=== PATIENT | male | born 1935 | race Caucasian/White ===

== ENCOUNTER → 2018-06-03 12:47 | Outpatient (POV) | payer MEDICARE, SELFPAY | PROVIDERS: Visit Provider Dermatology | DX: Z00.00 Encounter for general adult medical examination without abnormal findings (principal) ==

== ENCOUNTER → 2018-07-01 09:02 | Outpatient (POV) | payer MEDICARE, SELFPAY | PROVIDERS: Visit Provider Dermatology | DX: Z00.00 Encounter for general adult medical examination without abnormal findings (principal) ==

== ENCOUNTER → 2018-09-09 14:24 | Outpatient (POV) | payer MEDICARE, SELFPAY | PROVIDERS: Visit Provider Dermatology | DX: Z00.00 Encounter for general adult medical examination without abnormal findings (principal) ==

== ENCOUNTER → 2020-05-11 09:06 | Outpatient (CLI) | payer MEDICARE, SELFPAY ==
[2020-05-11 09:30] LABS: Basophils % 0.9 % (0.1-2.0); Eosinophils # 0.1 K/mm3 (0.0-0.4); Eosinophils % 3.2 % (0.1-12.0); Lymphocytes # 1.2 K/mm3 (0.7-4.5); Lymphocytes % 29.2 % (10-50); Mean Corpuscular HGB Conc 33.3 g/dL (31.8-35.4); Monocytes # 0.4 K/mm3 (0.1-1.0); Monocytes % 8.4 % (1.7-9.3); Neutrophils # 2.4 K/mm3 (1.8-7.8); Neutrophils % 58.3 % (37.0-80.0); Platelet Count 119 K/mm3 (142-424); Red Blood Count 4.19 M/mm3 (4.60-6.20); Red Cell Distribution Width 14.3 % (11.5-17.5); White Blood Count 4.2 K/mm3 (4.8-10.8)
[2020-05-11 10:11] LABS: Chloride 101 mmol/L (98-107); Potassium 4.6 mmoL/L (3.5-5.1); Sodium 138 mmol/L (136-145)
[2020-05-11 10:14] LABS: Alanine Aminotransferase 18 U/L (12-78); Albumin Level 3.4 g/dl (3.5-5.0); Albumin/Globulin Ratio 1.4 (1.1-1.8); Alkaline Phosphatase 87 U/L (38-126); Anion Gap 12.6 mEq/L (5-15); Aspartate Amino Transferase 34 U/L (17-59); Bilirubin,Total 0.8 mg/dl (0.2-1.3); Blood Urea Nitrogen 23 mg/dl (9-20); Carbon Dioxide 29 mmol/L (22.0-30.0); Estimated Glomerular Filt Rate 64 ml/min (>60); GFR (African American) 77 ML/MIN (>60); Globulin 2.5 g/dL (1.3-3.2); Total Protein,Serum 5.9 g/dl (6.3-8.2)
[2020-05-11 10:15] LABS: Calcium 8.8 mg/dl (8.4-10.2); Glucose 205 mg/dl (74-100)
[2020-05-11 10:37] LABS: Coronavirus 19 IgG Antibody Negative (Negative); Coronavirus 19 IgM Antibody Negative (Negative)
== END ==
PROVIDERS: Visit Provider Otolaryngology
DX: Z01.818 Encounter for other preprocedural examination (principal); C44.202 Unspecified malignant neoplasm of skin of right ear and external auricular canal; D49.2 Neoplasm of unspecified behavior of bone, soft tissue, and skin; H95.41 Postprocedural hemorrhage of ear and mastoid process following a procedure on the ear and mastoid process
CPT/HCPCS: 36415; 80053; 85025; 86328

== ENCOUNTER 2020-05-12 06:06 | Day surgery (SDC) | payer MEDICARE, SELFPAY ==
[2020-05-10 11:10] VITALS: BMI 27.9
[2020-05-12 06:37] VITALS: BP 110/77; PULSE 69; RESP 18; TEMP 36.6; O2SAT 97
--- NOTE | 2020-05-12 06:40 | ECG_ITS ---
APPROVED REPORT Exam: Resting ECG HR:73 bpm ECG Measurements Heart Rate 73 AXES QRSd 104 QRS 39 QT 452 T -82 QTc 497 <Conclusion> Atrial fibrillation Low voltage QRS Incomplete right bundle branch block Nonspecific ST and T wave abnormality Prolonged QT Abnormal ECG Electronically signed by : Tay Ortega, 05/15/2020 15:04:06
[2020-05-12 07:11] LABS: POC Glucose,Bedside 104 (70-110)
--- NOTE | 2020-05-12 07:32 | P.PN_ITS ---
[facility] Anesthesia Checklist - Structural Data Admitted From: Home Planned Operative Procedure/s: excision neoplasm r face Consent for Planned Operative Procedure(s) Verified: Yes - Additional verifications Anesthesia Reactions: No Hx Blood Transfusions: No Blood Transfusion Reaction: No - Airway Assessment C-Spine Mobility Assessed: Yes TMJ Mobility Assessed: Yes Dentition: Poor Dentition - Neurological Assessment Level of Consciousness: Awake, Alert, Appropriate - Anesthesia Plan Anesthesia Risk discussed: Yes Anesthesia Plan: Verified ASA Class: III Anesthesia Type: MAC [facility] History I have reviewed the patient's past medical history: Yes Medical History: Reports:: Diabetes Mellitus Type 2, Hyperlipidemia, Hypertension Denies:: Cancer, Diabetes Mellitus Type 1, Internal Pacemaker, MRSA, Seizures *Have you ever received a pneumonia vaccine?: Yes *Have you received a flu vaccine this season?: Yes Other Medical History: Denies: Blood Transfusion Reaction Anesthesia experience/problems:: none Other Surgeries: Yes: Skin Cancer Excision, Other. No: Pacemaker Amputation: No Fractures: No - *Social History Last grade of school completed: 7th or 8th Smoking Status: Former smoker Alcohol Intake: never Alcohol Intake Frequency:: other Substance Use Type: denies use *Occupational Status:: retired Housing: house Household Members: spouse *Travel in the last 8 weeks: None Family Hx:: Unable to obtain
--- NOTE | 2020-05-12 08:31 | P.OP_ITS ---
Date of procedure: 05/12/20 Pre-op Diagnosis:: 1. 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 Malignant neoplasm right presybeterian 3 cm Post-op Diagnosis:: same Procedure performed:: 1. Excision neoplasm right ear 3.5 cm including subjacent cartilage with tissue rearrangement geometric plastic repair 2. Excision malignant neoplasm right presybeterian 3 cm with tissue rearrangement geometric plastic repair Surgeon:: Lebron Alonso MD ELECTRONIC PUBLICATIONS SPECIALIST:: Sawyer Goetz Anesthesia: MAC Estimated blood loss (mL): 10 Operative findings:: same Operative note:: With the patient under MAC anesthesia the right ear and right presybeterian were prepped and draped the perilesional areas were infiltrated with a total of 5 cc of 2% lidocaine containing epinephrine. The bruno out on the right ear was incised and the lesion was excised including subjacent cartilage. Anterior and posterior incisions were made and bleeding was stopped with bipolar cautery. A tissue rearrangement geometric plastic repair was done with interrupted 4-0 nylon sutures after Surgicel was placed in the defect. The lesion on the left presybeterian was marked out it measured 3 cm, the bruno out was incised and the lesion was excised and submitted. Bleeding was stopped with bipolar cautery, blood loss for all the procedure was 10 cc. Superior and inferior incisions were made and a tissue rearrangement geometric plastic repair was done after Surgicel snow was placed in the defect. Dermabond dressings were applied and the patient was sent to recovery in good general condition . Condition: stable Disposition: PACU Complications:: none
[2020-05-12 08:35] VITALS: BP 112/69; PULSE 62; RESP 16; TEMP 36.6; O2SAT 97
[2020-05-12 08:50] VITALS: BP 113/76; PULSE 69; RESP 16; O2SAT 97
[2020-05-12 09:05] VITALS: BP 111/72; PULSE 68; RESP 16; O2SAT 98
== END 2020-05-12 09:05 | disposition home or self-care (01) ==
PROVIDERS: PCP Family Medicine; Visit Provider Otolaryngology
PROC: (CPT 14040; principal; 2020-05-12 07:30)
DX: C44.212 Basal cell carcinoma of skin of right ear and external auricular canal; L82.1 Other seborrheic keratosis; E11.9 Type 2 diabetes mellitus without complications; I10 Essential (primary) hypertension; E78.5 Hyperlipidemia, unspecified; Z85.828 Personal history of other malignant neoplasm of skin; Z87.891 Personal history of nicotine dependence; Z79.84 Long term (current) use of oral hypoglycemic drugs; Z79.899 Other long term (current) drug therapy
CPT/HCPCS: 14040; 14060; 82962; 88305; 93005; 96374; 96375

== ENCOUNTER 2020-05-14 16:30 | Emergency (ER) | payer MEDICARE, SELFPAY ==
[2020-05-14 16:39] VITALS: BP 126/61; PULSE 92; RESP 17; TEMP 37; O2SAT 92; BMI 28.3
--- NOTE | 2020-05-14 16:50 | HMH.EDSKAF ---
ED Disposition Clinical Impression: Post-op bleeding Qualifiers: Surgical complication system/body Area: ear Procedure type: ear Qualified Code(s): H95.41 - Postprocedural hemorrhage of ear and mastoid process following a procedure on the ear and mastoid process Disposition: Home, Self-Care Condition on Discharge: Good Instructions: DI for Skin Abscess Referrals: Tay Pablo MD [Primary Care Provider] - - Critical Care Critical Care Time: No Attestation: On 05/14/20, the high probability of a clinically significant, sudden or life threatening deterioration of the following system(s) required my full and direct attention, intervention and personal management. The time I documented below is in addition to time spent performing reported procedures but includes the following listed in this critical care notation. Medical Decision Making - Samson Inquiry Pt receiving controlled substance: No Vital Signs: 05/14/20 16:39 Temperature 98.6 F Temperature Source Oral Pulse Rate [Right Radial] 92 H Respiratory Rate 17 Blood Pressure [Right Arm] 126/61 Blood Pressure Mean [Right Arm] 82 02 Sat by Pulse Oximetry 92 L Skin/Abscess/FB HPI - General Chief complaint: Skin/Abscess/Foreign Body Stated complaint: surgery 05/12/20 R ear bleeding Time Seen by Provider: 05/14/20 16:45 Mode of Arrival: Ambulatory Source of Information: Patient Limitations: No Limitations Description of Symptoms (Recalled from ER Triage Doc. by RN): right ear site bleeding. pt states that dr suarez removed a place from his right ear and it will not stop bleeding. pt states the ear is swollen and red also. - History of Present Illness HPI narrative: This is a 89-year-old male who presents with acute bleeding of postop site at right ear. Patient had a had precancerous lesion removed approximately 2 days ago. Site has been oozing blood. reports she is unable to control the bleeding. Patient denies any pain or fever. Patient is on apixaban for anticoagulation secondary to atrial fibrillation. - Related Data Home Medications Medication Instructions Recorded Confirmed bisoprolol fumarate 5 mg tablet 5 mg PO DAILY 90 Days tab 10/02/18 05/02/20 glipizide 10 mg tablet 10 mg PO DAILY 90 Days tab 10/02/18 05/02/20 lisinopril 2.5 mg tablet 2.5 mg PO DAILY 90 Days tab 10/02/18 05/02/20 metformin 1,000 mg tablet 1,000 mg PO DAILY 90 Days tab 10/02/18 05/02/20 simvastatin 10 mg tablet 10 mg PO DAILY 90 Days tab 10/02/18 05/02/20 apixaban 5 mg tablet 5 mg PO BID 05/02/20 05/02/20 Allergies Allergy/AdvReac Type Severity Reaction Status Date / Time No Known Allergies Allergy Verified 05/14/20 16:43 [facility] History - Hepatitis A Screen Drug use history?: No High risk sexual behaviors?: No History of sexually transmitted infection?: No Currently employed?: No Childcare worker?: No Do you have indoor plumbing?: Yes Do you have electricity?: Yes Attestation statement:: This patient has been screened for Hepatitis A risk factors. I have reviewed the patient's past medical history: Yes Medical History: Reports:: Diabetes Mellitus Type 2, Hyperlipidemia, Hypertension Denies:: Cancer, Diabetes Mellitus Type 1, Internal Pacemaker, MRSA, Seizures Other Medical History: Denies: Blood Transfusion Reaction Other Surgeries: Yes: Skin Cancer Excision, Other. No: Pacemaker Amputation: No Fractures: No Comment: facial lesion - Social History Smoking Status: Former smoker Alcohol Intake: never Alcohol Intake Frequency:: other Substance Use Type: denies use Occupational Status: retired Housing: house Household Members: spouse Family Hx:: Unable to obtain ROS Obtained: Yes All systems reviewed & no additional complaints Physical Exam - General General appearance: alert, in no apparent distress - Head Head exam: atraumatic, other (surgical site at L.superior auricle w/ clotted blood; no active bleeding) - Ey
[2020-05-14 18:07] VITALS: BP 125/78; PULSE 78; RESP 16; TEMP 36.6; O2SAT 98
== END 2020-05-14 18:08 | disposition home or self-care (01) ==
PROVIDERS: Emergency Provider Emergency Medicine; PCP Family Medicine
DX: H95.41 Postprocedural hemorrhage of ear and mastoid process following a procedure on the ear and mastoid process (principal); I10 Essential (primary) hypertension; E78.5 Hyperlipidemia, unspecified; E11.9 Type 2 diabetes mellitus without complications; Z87.891 Personal history of nicotine dependence
CPT/HCPCS: 17250; 99281

== ENCOUNTER → 2021-03-06 15:02 | Outpatient (CLI) | payer MEDICARE, SELFPAY | PROVIDERS: PCP Family Medicine; Visit Provider Family Medicine | DX: I48.11 Longstanding persistent atrial fibrillation (principal); I50.32 Chronic diastolic (congestive) heart failure; R01.1 Cardiac murmur, unspecified | CPT/HCPCS: 93306 ==

== ENCOUNTER → 2021-03-08 09:25 | Outpatient (CLI) | payer MEDICARE, SELFPAY ==
--- NOTE | 2021-03-08 | ECG_ITS ---
APPROVED REPORT Exam: Resting ECG HR:61 bpm ECG Measurements Heart Rate 61 AXES QRSd 100 QRS 94 QT 442 T 250 QTc 444 Conclusion Atrial fibrillation Rightward axis Incomplete right bundle branch block T wave abnormality, consider inferolateral ischemia or digitalis effect Abnormal ECG Electronically signed by : Tay Ortega, 03/08/2021 17:40:16
[2021-03-08 10:33] LABS: Basophils % 0.5 % (0.1-2.0); Eosinophils # 0.1 K/mm3 (0.0-0.4); Eosinophils % 2.3 % (0.1-12.0); Hematocrit 35.3 % (42.0-52.0); Hemoglobin 11.9 g/dL (14.1-18.0); Lymphocytes # 0.9 K/mm3 (0.7-4.5); Lymphocytes % 15.1 % (10-50); Mean Corpuscular HGB Conc 33.8 g/dL (31.8-35.4); Mean Corpuscular Hemoglobin 29.3 pg (27.0-31.2); Mean Corpuscular Volume 86.7 fl (80-94); Mean Platelet Volume 9.1 fl (7.4-10.4); Monocytes # 0.4 K/mm3 (0.1-1.0); Monocytes % 7.5 % (1.7-9.3); Neutrophils # 4.3 K/mm3 (1.8-7.8); Neutrophils % 74.6 % (37.0-80.0); Platelet Count 164 K/mm3 (142-424); Red Blood Count 4.07 M/mm3 (4.60-6.20); White Blood Count 5.7 K/mm3 (4.8-10.8)
== END ==
LOC: RAD 09:29 → RT 09:31
PROVIDERS: PCP Family Medicine; Visit Provider Otolaryngology
DX: Z01.818 Encounter for other preprocedural examination (principal); Z20.822 Contact with and (suspected) exposure to COVID-19; C44.41 Basal cell carcinoma of skin of scalp and neck
CPT/HCPCS: 36415; 85025; 93005; U0003

== ENCOUNTER 2021-03-09 08:49 | Day surgery (SDC) | payer MEDICARE, SELFPAY ==
[2021-03-02 13:23] VITALS: BMI 27.1
[2021-03-09 09:06] VITALS: BP 137/75; PULSE 76; RESP 18; TEMP 36.9; O2SAT 95
[2021-03-09 09:14] LABS: POC Glucose,Bedside 118 (70-110)
--- NOTE | 2021-03-09 09:48 | HMH.ANESCL ---
[facility] Anesthesia Checklist - Structural Data Admitted From: Home Planned Operative Procedure/s: excision neoplasm l ear Consent for Planned Operative Procedure(s) Verified: Yes - Additional verifications Anesthesia Reactions: No Hx Blood Transfusions: No Blood Transfusion Reaction: No - Airway Assessment C-Spine Mobility Assessed: Yes TMJ Mobility Assessed: Yes Dentition: Partials - Neurological Assessment Level of Consciousness: Awake, Alert, Appropriate - Anesthesia Plan Anesthesia Risk discussed: Yes Anesthesia Plan: Verified ASA Class: III Anesthesia Type: MAC [facility] History I have reviewed the patient's past medical history: Yes Medical History: Reports:: Cancer (skin), Diabetes Mellitus Type 2, Hyperlipidemia, Hypertension Denies:: Diabetes Mellitus Type 1, Internal Pacemaker, MRSA, Seizures *Have you ever received a pneumonia vaccine?: Yes *Have you received a flu vaccine this season?: Yes Other Medical History: Denies: Blood Transfusion Reaction Anesthesia experience/problems:: none Other Surgeries: Yes: Skin Cancer Excision, Other. No: Pacemaker Amputation: No Fractures: No - *Social History Last grade of school completed: 5th or 6th Smoking Status: Never smoker Alcohol Intake: never Alcohol Intake Frequency:: other Substance Use Type: denies use *Occupational Status:: retired Housing: house Household Members: spouse *Travel in the last 8 weeks: None Family Hx:: No significant family history
--- NOTE | 2021-03-09 10:28 | P.OP_ITS ---
Date of procedure: 03/09/21 Pre-op Diagnosis:: 1. 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 Neoplasm left cheek 3 cm 3. Neoplasm left cheek anterior 2 cm Post-op Diagnosis:: same Procedure performed:: 1. Excision of neoplasm left mastoid 3.8 cm with tissue rearrangement Z-plasty repair 2. Excision excision of neoplasm left cheek 3 cm with simple repair 3. Excision of neoplasm anterior left cheek 2 cm with simple repair Surgeon:: Lebron Alonso MD CORONER/MEDICAL EXAMINER:: Letitia Ang Anesthesia: MAC Estimated blood loss (mL): 10 Operative findings:: same Operative note:: With the patient under a MAC anesthetic the face and left mastoid area were prepped and draped the perilesional areas were infiltrated with a total of 6 cc of 2% lidocaine containing epinephrine.. The lesion on the left mastoid was marked out it measured 3.8 cm markup was incised and the lesion was excised and submitted. Bleeding was stopped with bipolar cautery anterior and posterior incisions were made and a tissue rearrangement Z-plasty repair was done with interrupted 2-0 nylon sutures,a Dermabond dressing was applied. The lesion on the left cheek that measured 3 cm was marked out and the bruno out was incised and the lesion was excised bleeding was stopped with bipolar cautery, a simple repair was done with interrupted 2-0 nylon sutures and a Dermabond dressing was applied. The lesion on the left cheek anterior was marked out it measured 2 cm and the bruno out was incised the lesion was excised and a simple repair was done with interrupted two 2-0 nylon sutures, a Dermabond dressing was applied, the patient tolerated procedure well and was sent to recovery in good general condition. signed Lebron Alonso MD. thank you Condition: stable Disposition: PACU Complications:: none
[2021-03-09 10:30] VITALS: BP 123/69; PULSE 74; RESP 18; TEMP 36.4; O2SAT 95
[2021-03-09 10:40] VITALS: BP 120/74; PULSE 74; RESP 16; TEMP 36.4; O2SAT 96
[2021-03-09 10:50] VITALS: BP 122/68; PULSE 72; RESP 16; TEMP 36.4; O2SAT 98
[2021-03-09 11:00] VITALS: BP 122/68; PULSE 70; RESP 16; TEMP 36.4; O2SAT 98
== END 2021-03-09 11:00 | disposition home or self-care (01) ==
LOC: OR 08:50
PROVIDERS: PCP Family Medicine; Visit Provider Otolaryngology
DX: C44.329 Squamous cell carcinoma of skin of other parts of face (principal); C44.92 Squamous cell carcinoma of skin, unspecified; E11.9 Type 2 diabetes mellitus without complications; Z79.84 Long term (current) use of oral hypoglycemic drugs; I10 Essential (primary) hypertension
CPT/HCPCS: 11642; 11644; 14040; 82962; 88305; 96374; J2704

== ENCOUNTER → 2021-08-31 08:24 | Outpatient (CLI) | payer MEDICARE, SELFPAY ==
[2021-08-31] VITALS (8 sets, daily range): BP systolic 102–180; BP diastolic 63–98; PULSE 54–66; RESP 18; O2SAT 94–98
== END ==
PROVIDERS: PCP Family Medicine; Visit Provider Family Medicine
DX: U07.1 COVID-19 (principal); Z23 Encounter for immunization
CPT/HCPCS: 96365

== ENCOUNTER → 2021-10-25 09:15 | Outpatient (CLI) | payer MEDICARE, SELFPAY ==
--- NOTE | 2021-10-25 09:21 | CA_ITS ---
APPROVED REPORT EXAM: Comprehensive 2D, Doppler, and color-flow Echocardiogram Instructional Support Assistant: Brianne Lea RVT Ht: 5 ft 10 in Wt: 200lbs BSA: 2.09 BP: 111/58 mmHg Indications: CHF,SOA,DM,HTN,HLD,EDEMA 2D Dimensions LVOT 2.22 cm (M/F) 1.5-2.5 LA Volume 150.00 mL LA Volume Index 72.11 mL/m2 (M/F) 16-34 M-Mode Dimensions RVDd 3.94 cm (0.9-2.6) LA Diam 5.54 cm (1.9-4.0) LVDd 5.06 cm (3.5-5.7) Ao Diam 3.12 cm (2.0-3.7) LVDs 3.81 cm (3.5-5.7) IVSd 1.08 cm (0.6-1.1) PWd 0.63 cm (0.6-1.1) EF (Teich) 48.80% FS 24.70% EDV (Teich) 121.60 mL TAPSE 2.07 (<1.7) ESV (Teich) 62.30 mL LV Diastology E Decel Time 150.00 (160-240 msec) E/A Ratio 3.4 MED E' 8.60 (< 7 cm/sec) E'/MED E' Ratio 9.73 (>14) LAT E' 16.50 (<10 cm/sec) E/LAT E' Ratio 5.07 (>14) Aortic Valve LVOT Max 72.00 (70-110 cm/s) LVOT VTI 14.72 cm AoV Peak Wesley. 148.00 (50-130 cm/s) AO Peak GR. 8.80 mmHg AO Mean GR. 4.00 (<5 mmHg) AO VTI 32.27 (18-25 cm) LIN (VTI) 1.77 (2.5-4.5 cm2) Mitral Valve MV E Max Wesley. 84.00 (40-130 cm/s) MV A Velocity 25.00 (40-130 cm/s) E/A Ratio 3.35 MV Decel. Time 150.00 (160-240 ms) MV PHT 44.00 ms Pulmonary Valve PV Peak Velocity 73.00 (50-150 cm/s) Tricuspid Valve TR P. Velocity 467.00 cm/s RAP Estimate 10.00 mmHg RVSP 97.20 mmHg Left Ventricle Left atrium is moderately enlarged, left ventricle is normal size, mild concentric left ventricular hypertrophy, visually estimated ejection fraction 55% with no regional wall motion abnormality, there is flattening of the intraventricular septum during systole and diastole consistent with pressure and volume overload on right ventricle. Diastolic parameters are inconclusive. Right Ventricle Right atrium and right ventricle are markedly enlarged, contractility of the right ventricle is mildly reduced. Aortic Valve Aortic valve is minimally thickened and fibrosed, there is no aortic stenosis or aortic insufficiency. Mitral Valve Mitral valve leaflets are minimally thickened, there is moderate mitral regurgitation. Tricuspid Valve Tricuspid valve leaflets are minimally thickened, tricuspid annulus is dilated, there is severe tricuspid regurgitation, calculated right ventricular systolic pressure is 97 mmHg. Pulmonic Valve Pulmonic valve is poorly visualized, there is moderate pulmonic insufficiency. Great Vessels Aortic root is normal size. Inferior vena cava is dilated without significant inspiratory collapse. Pericardium Small pericardial effusion noted. Conclusion 1. Biatrial enlargement, normal left ventricular size, mild concentric left ventricular hypertrophy, visually estimated ejection fraction 55% with no regional wall motion abnormality, diastolic parameters are inconclusive, there is pressure and volume overload on right ventricle as indicated by flattening of the interventricular septum during systole and diastole. 2. Markedly enlarged right ventricle with mild reduced contractility. 3. Moderate mitral and severe tricuspid regurgitation, calculated right ventricular systolic pressure 97mmHg. 4. Small pericardial effusion noted. 5. Inferior vena cava is dilated without significant inspiratory collapse. Electronically signed by : Carloz Christine MD 10/25/2021 19:38:54
--- NOTE | 2021-10-25 10:13 | XR_ITS ---
FINAL REPORT TECHNIQUE: Chest PA & Lateral CLINICAL HISTORY: SOB,PLEURAL EFFUSION FINDINGS: 2 views of the chest were performed. The heart is mildly enlarged. The mediastinum is within normal limits. There is dense left lower lobe consolidation and pleural effusion. There is a small right pleural effusion with fluid tracking into the minor fissure. Findings are consistent with acute pneumonia particularly in the left lung base. There is no pneumothorax. The bony thorax appears intact. IMPRESSION: Acute pneumonia particularly in the left lung base. Reviewed, Interpreted and Dictated by Atul Crowe MD Transcribed by Driss Durham Authenticated by Atul Crowe MD on 10/25/2021 11:15:08 AM [facility]
== END ==
PROVIDERS: PCP Family Medicine; Visit Provider Family Medicine
DX: R06.02 Shortness of breath (principal); J90 Pleural effusion, not elsewhere classified; I50.30 Unspecified diastolic (congestive) heart failure; Z51.81 Encounter for therapeutic drug level monitoring; Z79.01 Long term (current) use of anticoagulants
CPT/HCPCS: 71046; 93306

== ENCOUNTER → 2021-10-27 10:49 | Outpatient (CLI) | payer MEDICARE, SELFPAY ==
--- NOTE | 2021-10-27 10:51 | CA_ITS ---
FINAL REPORT TECHNIQUE: Bilateral lower extremity venous duplex was performed with augmentation and compression. CLINICAL HISTORY: edema in BLE, no trauma, states his legs have been swelling for 6 months or longer. HTN, hyperlipidemia, DM, ex smoker. Patient takes Eliquis daily x 2 years. FINDINGS: Proper flow is seen throughout the deep venous systems bilaterally. There is no evidence of deep venous thrombosis. Interstitial edema is noted. IMPRESSION: No evidence of deep venous thrombosis. Reviewed, Interpreted and Dictated by Atul Crowe MD Transcribed by Lisa Gusman Authenticated by Atul rCowe MD on 10/27/2021 02:36:08 PM [facility]
[2021-10-27 12:13] LABS: Basophils % 0.4 % (0.1-2.0); Eosinophils # 0.1 K/mm3 (0.0-0.4); Eosinophils % 1.5 % (0.1-12.0); Hemoglobin 8.5 g/dL (14.1-18.0); Lymphocytes # 0.7 K/mm3 (0.7-4.5); Lymphocytes % 13.6 % (10-50); Mean Corpuscular HGB Conc 30.2 g/dL (31.8-35.4); Mean Corpuscular Hemoglobin 24.2 pg (27.0-31.2); Mean Corpuscular Volume 80.2 fl (80-94); Mean Platelet Volume 8.2 fl (7.4-10.4); Monocytes # 0.5 K/mm3 (0.1-1.0); Monocytes % 9.7 % (1.7-9.3); Neutrophils # 3.7 K/mm3 (1.8-7.8); Neutrophils % 74.8 % (37.0-80.0); Platelet Count 262 K/mm3 (142-424); Red Blood Count 3.49 M/mm3 (4.60-6.20)
[2021-10-27 12:41] LABS: Chloride 99 mmol/L (98-107); Potassium 4.6 mmoL/L (3.5-5.1); Sodium 132 mmol/L (136-145)
[2021-10-27 12:44] LABS: Anion Gap 8.6 mEq/L (5-15); Blood Urea Nitrogen 25 mg/dl (9-20); Carbon Dioxide 29 mmol/L (22.0-30.0); Estimated Glomerular Filt Rate 64 ml/min (>60); GFR (African American) 77 ML/MIN (>60)
[2021-10-27 12:45] LABS: Calcium 7.4 mg/dl (8.4-10.2); Glucose 134 mg/dl (74-100)
[2021-10-27 12:53] LABS: NT Pro Brain Natriuretic Pep. 1190 pg/mL (0-450)
== END ==
PROVIDERS: PCP Family Medicine; Visit Provider Internal Medicine Cardiovascular Disease
DX: M79.604 Pain in right leg (principal); M79.605 Pain in left leg; R60.0 Localized edema; I07.1 Rheumatic tricuspid insufficiency; I27.20 Pulmonary hypertension, unspecified; I34.0 Nonrheumatic mitral (valve) insufficiency; I48.11 Longstanding persistent atrial fibrillation; R06.00 Dyspnea, unspecified; R94.31 Abnormal electrocardiogram [ECG] [EKG]; Z86.16 Personal history of COVID-19
CPT/HCPCS: 36415; 80048; 80162; 82565; 83880; 84520; 85025; 93970

== ENCOUNTER → 2021-11-03 13:27 | Outpatient (CLI) | payer MEDICARE, SELFPAY ==
--- NOTE | 2021-11-03 13:27 | CT_ITS ---
FINAL REPORT TECHNIQUE: Then section axial CT images of the chest were obtained with contrast. Three-D reformatted images were also obtained.This study was performed with techniques to keep radiation doses as low as reasonably achievable (ALARA). Individualized dose reduction techniques using automated exposure control or adjustment of mA and/or kV according to the patient''s size were employed. CLINICAL HISTORY: dyspnea, no sx to chest FINDINGS: There is no central pulmonary embolism. The left lower lobe bronchus is poorly opacified. Left lower lobe segmental branches are unopacified. Findings are favored to be secondary to heart failure with diminished blood flow rather than pulmonary embolism. There is bilateral lower lobe atelectasis, left greater than right. There are moderate left and small right pleural effusions. There is a 5.7 cm soft tissue opacity in the lateral left lung base that favors rounded atelectasis. There is marked cardiomegaly with a small pericardial effusion. There are moderate changes of emphysema with mild scarring. There is mild bilateral posterior pleural thickening. Images through the abdomen demonstrate the liver to have an abnormal contour consistent with cirrhosis. There is mild splenomegaly. There are small gallstones. There is nonspecific gallbladder wall thickening. There is a 4.6 cm mass in the upper pole of the right kidney that cannot be accurately characterized but may represent a mildly complicated cyst. IMPRESSION: No central pulmonary embolism. Findings favoring heart failure with diminished blood flow. Right greater than left pleural effusions. Cirrhosis with mild splenomegaly. Cholelithiasis with nonspecific gallbladder wall thickening. Mass in the upper pole of the right kidney cannot be accurately characterized but may represent a mildly complicated cyst. Reviewed, Interpreted and Dictated by Dick Leggett III, MD Transcribed by Driss Durham Authenticated by Dick Leggett III, MD on 11/03/2021 03:10:40 PM [facility]
== END ==
PROVIDERS: PCP Family Medicine; Visit Provider Internal Medicine Cardiovascular Disease
DX: I07.1 Rheumatic tricuspid insufficiency (principal); I27.20 Pulmonary hypertension, unspecified; I34.0 Nonrheumatic mitral (valve) insufficiency; I48.11 Longstanding persistent atrial fibrillation; R06.00 Dyspnea, unspecified; R94.31 Abnormal electrocardiogram [ECG] [EKG]; Z86.16 Personal history of COVID-19
CPT/HCPCS: 71275; Q9967

== ENCOUNTER 2021-11-28 09:48 | Outpatient (CLI) | payer MEDICARE, SELFPAY ==
[2021-11-28 10:13] VITALS: BP 118/74; PULSE 80; RESP 16; TEMP 36.2; O2SAT 99
[2021-11-28 10:55] VITALS: BP 112/69; PULSE 78; RESP 18; TEMP 36.4; O2SAT 99
== END 2021-11-28 10:55 | disposition home or self-care (01) ==
LOC: INF 09:50
PROVIDERS: Visit Provider Family Medicine
DX: D64.9 Anemia, unspecified (principal)
CPT/HCPCS: 96365; J1439

== ENCOUNTER 2021-12-05 09:23 | Outpatient (CLI) | payer MEDICARE, SELFPAY ==
[2021-12-05 09:29] VITALS: BP 115/69; PULSE 82; RESP 18; TEMP 36.6; O2SAT 98; BMI 25.9
[2021-12-05 10:40] VITALS: BP 112/68; PULSE 82; RESP 16
== END 2021-12-05 10:40 | disposition home or self-care (01) ==
LOC: INF 09:24
PROVIDERS: PCP Family Medicine; Visit Provider Internal Medicine Medical Oncology
DX: D64.9 Anemia, unspecified (principal)
CPT/HCPCS: 96365; J1439

== ENCOUNTER → 2021-12-27 11:01 | Outpatient (CLI) | payer MEDICARE, SELFPAY ==
[2021-12-27 11:23] LABS: Basophils % 0.6 % (0.1-2.0); Eosinophils # 0.2 K/mm3 (0.0-0.4); Eosinophils % 4.1 % (0.1-12.0); Hematocrit 36.6 % (42.0-52.0); Hemoglobin 11.5 g/dL (14.1-18.0); Lymphocytes % 26.3 % (10-50); Mean Corpuscular HGB Conc 31.4 g/dL (31.8-35.4); Mean Corpuscular Volume 82.8 fl (80-94); Mean Platelet Volume 8.4 fl (7.4-10.4); Monocytes # 0.3 K/mm3 (0.1-1.0); Monocytes % 7.5 % (1.7-9.3); Neutrophils # 2.3 K/mm3 (1.8-7.8); Neutrophils % 61.5 % (37.0-80.0); Platelet Count 194 K/mm3 (142-424); Red Blood Count 4.42 M/mm3 (4.60-6.20); Red Cell Distribution Width 22.5 % (11.5-17.5); White Blood Count 3.8 K/mm3 (4.8-10.8)
[2021-12-27 12:33] LABS: Chloride 101 mmol/L (98-107); Sodium 137 mmol/L (136-145)
[2021-12-27 12:34] LABS: Potassium 4.2 mmoL/L (3.5-5.1)
[2021-12-27 12:37] LABS: Anion Gap 10.2 mEq/L (5-15); Blood Urea Nitrogen 21 mg/dl (9-20); Carbon Dioxide 30 mmol/L (22.0-30.0); Estimated Glomerular Filt Rate 64 ml/min (>60); GFR (African American) 77 ML/MIN (>60); Glucose 143 mg/dl (74-100)
== END ==
PROVIDERS: Visit Provider Internal Medicine Cardiovascular Disease
DX: D64.9 Anemia, unspecified (principal); I07.1 Rheumatic tricuspid insufficiency; I27.20 Pulmonary hypertension, unspecified; I34.0 Nonrheumatic mitral (valve) insufficiency; R06.00 Dyspnea, unspecified; R94.31 Abnormal electrocardiogram [ECG] [EKG]
CPT/HCPCS: 36415; 80048; 85025

== ENCOUNTER → 2023-08-07 23:17 | Outpatient (CLI) | payer MEDICARE, SELFPAY | PROVIDERS: PCP Nurse Practitioner Family; Visit Provider Nurse Practitioner Family | DX: R05.9 Cough, unspecified (principal); R09.89 Other specified symptoms and signs involving the circulatory and respiratory systems; J02.9 Acute pharyngitis, unspecified | CPT/HCPCS: 87635 ==

== ENCOUNTER 2023-09-18 13:07 | Outpatient (CLI) | payer MEDICARE, SELFPAY ==
[2023-09-18 13:29] LABS: Basophils % 0.5 % (0.1-2.0); Eosinophils # 0.1 K/mm3 (0.0-0.4); Eosinophils % 2.2 % (0.1-12.0); Hematocrit 42.4 % (42.0-52.0); Lymphocytes # 0.6 K/mm3 (0.7-4.5); Lymphocytes % 16.3 % (10-50); Mean Corpuscular Hemoglobin 29.9 pg (27.0-31.2); Mean Corpuscular Volume 90.6 fl (80-94); Monocytes # 0.3 K/mm3 (0.1-1.0); Monocytes % 9.2 % (1.7-9.3); Neutrophils # 2.5 K/mm3 (1.8-7.8); Neutrophils % 71.8 % (37.0-80.0); Platelet Count 166 K/mm3 (142-424); Red Blood Count 4.68 M/mm3 (4.60-6.20); Red Cell Distribution Width 14.5 % (11.5-17.5); White Blood Count 3.5 K/mm3 (4.8-10.8)
[2023-09-18 14:00] LABS: Alanine Aminotransferase 20 U/L (12-78); Albumin Level 3.2 g/dl (3.5-5.0); Albumin/Globulin Ratio 1.3 (1.1-1.8); Alkaline Phosphatase 95 U/L (38-126); Anion Gap 8.9 mEq/L (5-15); Aspartate Amino Transferase 35 U/L (17-59); Bilirubin,Total 0.6 mg/dl (0.2-1.3); Blood Urea Nitrogen 27 mg/dl (9-20); Calcium 7.9 mg/dl (8.4-10.2); Carbon Dioxide 33 mmol/L (22.0-30.0); Chloride 101 mmol/L (98-107); Estimated Glomerular Filt Rate 57 ml/min (>60); GFR (African American) 69 ML/MIN (>60); Globulin 2.5 g/dL (1.3-3.2); Glucose 187 mg/dl (74-100); Magnesium 2.1 mg/dl (1.6-2.3); Potassium 3.9 mmoL/L (3.5-5.1); Sodium 139 mmol/L (136-145); Total Protein,Serum 5.7 g/dl (6.3-8.2)
[2023-09-18 16:47] LABS: Troponin I 0.02 ng/ml (0.00-0.034)
[2023-09-18 17:06] LABS: Thyroid Stimulating Hormone 5.72 uIU/mL (0.465-4.68)
== END 2023-09-18 23:59 ==
LOC: LAB.DROPOF 13:07
PROVIDERS: PCP Nurse Practitioner Family; Visit Provider Nurse Practitioner Family
DX: R55 Syncope and collapse (principal); E78.5 Hyperlipidemia, unspecified; I48.91 Unspecified atrial fibrillation
CPT/HCPCS: 80053; 83735; 84443; 84484; 85025

== ENCOUNTER 2023-10-07 13:28 | Outpatient (CLI) | payer MEDICARE, SELFPAY ==
[2023-10-07 14:05] LABS: Hemoglobin A1C 6.4 % (4.0-6.0)
[2023-10-07 14:38] LABS: Alanine Aminotransferase 18 U/L (12-78); Albumin Level 3.2 g/dl (3.5-5.0); Albumin/Globulin Ratio 1.3 (1.1-1.8); Alkaline Phosphatase 112 U/L (38-126); Anion Gap 8.4 mEq/L (5-15); Aspartate Amino Transferase 34 U/L (17-59); Bilirubin,Total 0.5 mg/dl (0.2-1.3); Blood Urea Nitrogen 23 mg/dl (9-20); Calcium 8.5 mg/dl (8.4-10.2); Carbon Dioxide 32 mmol/L (22.0-30.0); Chloride 102 mmol/L (98-107); Estimated Glomerular Filt Rate 57 ml/min (>60); GFR (African American) 69 ML/MIN (>60); Globulin 2.4 g/dL (1.3-3.2); Glucose 172 mg/dl (74-100); Potassium 4.4 mmoL/L (3.5-5.1); Sodium 138 mmol/L (136-145); Total Protein,Serum 5.6 g/dl (6.3-8.2)
[2023-10-07 15:07] LABS: Thyroid Stimulating Hormone 5.89 uIU/mL (0.465-4.68)
[2023-10-09 13:29] LABS: Peripheral Smear Review Scanned Result
== END 2023-10-07 23:59 ==
LOC: LAB.DROPOF 13:29
PROVIDERS: PCP Nurse Practitioner Family; Visit Provider Nurse Practitioner Family
DX: E03.9 Hypothyroidism, unspecified (principal); E83.51 Hypocalcemia; R73.9 Hyperglycemia, unspecified; D72.819 Decreased white blood cell count, unspecified
CPT/HCPCS: 80053; 83036; 84443

== ENCOUNTER 2023-11-13 16:02 | Outpatient (CLI) | payer MEDICARE, SELFPAY ==
[2023-11-13 17:58] LABS: Free T4 (Free Thyroxine) 0.99 ng/dl (0.78-2.19)
[2023-11-13 18:00] LABS: T4 (Thyroxine) 8.5 ug/dl (5.53-11.0)
[2023-11-13 18:13] LABS: Thyroid Stimulating Hormone 6.67 uIU/mL (0.465-4.68)
[2023-11-15 09:13] LABS: Triiodothyronine (T3) Free 2.5 pg/mL (2.0-4.4)
== END 2023-11-13 23:59 ==
LOC: LAB.DROPOF 16:02
PROVIDERS: PCP Nurse Practitioner Family; Visit Provider Nurse Practitioner Family
DX: E03.8 Other specified hypothyroidism (principal)
CPT/HCPCS: 84436; 84439; 84443; 84481

== ENCOUNTER 2024-02-10 16:37 | Outpatient (CLI) | payer MEDICARE, SELFPAY ==
[2024-02-10 15:13] LABS: Alanine Aminotransferase 13 U/L (12-78); Albumin Level 2.7 g/dl (3.5-5.0); Albumin/Globulin Ratio 1.1 (1.1-1.8); Alkaline Phosphatase 97 U/L (38-126); Anion Gap 9.9 mEq/L (5-15); Aspartate Amino Transferase 28 U/L (17-59); Bilirubin,Total 0.7 mg/dl (0.2-1.3); Blood Urea Nitrogen 25 mg/dl (9-20); Calcium 8.2 mg/dl (8.4-10.2); Carbon Dioxide 29 mmol/L (22.0-30.0); Chloride 103 mmol/L (98-107); Cholesterol 176 mg/dl (140-200); Estimated Glomerular Filt Rate 57 ml/min (>60); GFR (African American) 69 ML/MIN (>60); Globulin 2.4 g/dL (1.3-3.2); Glucose 108 mg/dl (74-100); HDL Cholesterol 44 mg/dl (40-60); Potassium 3.9 mmoL/L (3.5-5.1); Sodium 138 mmol/L (136-145); Total Protein,Serum 5.1 g/dl (6.3-8.2); Triglycerides 166 mg/dl (30-150); VLDL Cholesterol 33 mg/dL (0-40)
[2024-02-10 15:25] LABS: Direct LDL Cholesterol 82.62 mg/dL (100-129); Free T4 (Free Thyroxine) 1.14 ng/dl (0.78-2.19)
[2024-02-10 15:41] LABS: Thyroid Stimulating Hormone 4.02 uIU/mL (0.465-4.68)
[2024-02-12 09:42] LABS: Triiodothyronine (T3) Free 2.5 pg/mL (2.0-4.4)
== END 2024-02-10 23:59 | disposition home or self-care (01) ==
LOC: LAB.DROPOF 16:38
PROVIDERS: PCP Nurse Practitioner Family; Visit Provider Nurse Practitioner Family
DX: E03.9 Hypothyroidism, unspecified (principal); R73.9 Hyperglycemia, unspecified; E83.51 Hypocalcemia; I10 Essential (primary) hypertension; E78.5 Hyperlipidemia, unspecified
CPT/HCPCS: 80053; 80061; 83036; 84439; 84443; 84481

== ENCOUNTER 2024-05-22 13:44 | Outpatient (CLI) | payer MEDICARE, SELFPAY ==
[2024-05-22 13:19] LABS: Basophils % 0.7 % (0.1-2.0); Eosinophils # 0.1 K/mm3 (0.0-0.4); Hematocrit 32.2 % (42.0-52.0); Hemoglobin 9.7 g/dL (14.1-18.0); Lymphocytes # 0.7 K/mm3 (0.7-4.5); Lymphocytes % 12.9 % (10-50); Mean Corpuscular Hemoglobin 22.5 pg (27.0-31.2); Mean Platelet Volume 8.9 fl (7.4-10.4); Monocytes # 0.5 K/mm3 (0.1-1.0); Monocytes % 9.6 % (1.7-9.3); Neutrophils # 3.9 K/mm3 (1.8-7.8); Neutrophils % 75.7 % (37.0-80.0); Platelet Count 329 K/mm3 (142-424); Red Cell Distribution Width 17.1 % (11.5-17.5); White Blood Count 5.1 K/mm3 (4.8-10.8)
[2024-05-22 14:35] LABS: Hemoglobin A1C 6.4 % (4.0-6.0)
[2024-05-22 17:34] LABS: Chloride 101 mmol/L (98-107)
[2024-05-22 17:35] LABS: Albumin Level 3.8 g/dl (3.5-5.0); Potassium 3.7 mmoL/L (3.5-5.1); Sodium 138 mmol/L (136-145)
[2024-05-22 17:38] LABS: Alanine Aminotransferase 10 U/L (12-78); Albumin/Globulin Ratio 1.5 (1.1-1.8); Alkaline Phosphatase 74 U/L (38-126); Anion Gap 11.7 mEq/L (5-15); Aspartate Amino Transferase 21 U/L (17-59); Bilirubin,Total 0.7 mg/dl (0.2-1.3); Blood Urea Nitrogen 14 mg/dl (9-20); Calcium 8.9 mg/dl (8.4-10.2); Carbon Dioxide 29 mmol/L (22.0-30.0); Estimated Glomerular Filt Rate 107 ml/min (>60); GFR (African American) 129 ML/MIN (>60); Globulin 2.5 g/dL (1.3-3.2); Glucose 80 mg/dl (74-100); Total Protein,Serum 6.3 g/dl (6.3-8.2)
[2024-05-22 17:47] LABS: NT Pro Brain Natriuretic Pep. 632 pg/mL (0-450)
[2024-05-22 18:09] LABS: Thyroid Stimulating Hormone 1.35 uIU/mL (0.465-4.68)
== END 2024-05-22 23:59 | disposition home or self-care (01) ==
LOC: LAB.DROPOF 13:47
PROVIDERS: PCP Nurse Practitioner Family; Visit Provider Nurse Practitioner Family
DX: R60.0 Localized edema (principal); R06.02 Shortness of breath; I48.21 Permanent atrial fibrillation; R73.09 Other abnormal glucose; E03.9 Hypothyroidism, unspecified
CPT/HCPCS: 80053; 83036; 83880; 84443; 85025

== ENCOUNTER 2024-06-19 11:33 | Outpatient (CLI) | payer MEDICARE, SELFPAY ==
[2024-06-19 11:32] LABS: Basophils % 0.6 % (0.1-2.0); Eosinophils # 0.1 K/mm3 (0.0-0.4); Eosinophils % 1.7 % (0.1-12.0); Lymphocytes # 0.7 K/mm3 (0.7-4.5); Lymphocytes % 15.4 % (10-50); Mean Corpuscular HGB Conc 31.1 g/dL (31.8-35.4); Mean Corpuscular Volume 70.8 fl (80-94); Mean Platelet Volume 7.6 fl (7.4-10.4); Monocytes # 0.4 K/mm3 (0.1-1.0); Monocytes % 8.4 % (1.7-9.3); Neutrophils # 3.2 K/mm3 (1.8-7.8); Neutrophils % 73.8 % (37.0-80.0); Platelet Count 337 K/mm3 (142-424); Red Cell Distribution Width 17.9 % (11.5-17.5); White Blood Count 4.4 K/mm3 (4.8-10.8)
[2024-06-19 11:51] LABS: Albumin Level 2.5 g/dl (3.5-5.0); Chloride 101 mmol/L (98-107); Potassium 4.1 mmoL/L (3.5-5.1); Sodium 137 mmol/L (136-145)
[2024-06-19 11:54] LABS: Alanine Aminotransferase 18 U/L (12-78); Alkaline Phosphatase 79 U/L (38-126); Anion Gap 6.1 mEq/L (5-15); Aspartate Amino Transferase 32 U/L (17-59); Bilirubin,Total 0.6 mg/dl (0.2-1.3); Blood Urea Nitrogen 27 mg/dl (9-20); Carbon Dioxide 34 mmol/L (22.0-30.0); Estimated Glomerular Filt Rate 57 ml/min (>60); GFR (African American) 69 ML/MIN (>60); Globulin 2.4 g/dL (1.3-3.2); Total Protein,Serum 4.9 g/dl (6.3-8.2)
[2024-06-19 11:55] LABS: Calcium 8.2 mg/dl (8.4-10.2); Glucose 174 mg/dl (74-100)
[2024-06-19 12:09] LABS: Troponin I < 0.01 ng/ml (0.00-0.034)
== END 2024-06-19 23:59 | disposition home or self-care (01) ==
LOC: LAB.DROPOF 11:33
PROVIDERS: PCP Nurse Practitioner Family; Visit Provider Nurse Practitioner Family
DX: R60.9 Edema, unspecified (principal); R06.02 Shortness of breath
CPT/HCPCS: 80053; 84484; 85025

== ENCOUNTER 2024-06-29 10:12 | Outpatient (CLI) | payer MEDICARE, SELFPAY ==
[2024-06-29 11:31] LABS: NT Pro Brain Natriuretic Pep. 1030 pg/mL (0-450)
== END 2024-06-29 23:59 | disposition home or self-care (01) ==
LOC: LAB 10:13
PROVIDERS: PCP Nurse Practitioner Family; Visit Provider Physician Assistant
DX: R06.02 Shortness of breath (principal)
CPT/HCPCS: 36415; 83880

== ENCOUNTER 2024-07-03 11:00 | Outpatient (CLI) | payer MEDICARE, SELFPAY ==
--- NOTE | 2024-07-03 11:06 | CA_ITS ---
APPROVED REPORT EXAM: Comprehensive 2D, Doppler, and color-flow Echocardiogram Defensive Line Coach: Brianne Lea RVT Ht: 5 ft 8 in Wt: 206lbs BSA: 2.07 BP: 120/58 mmHg Indications: CHF,A-FIB,PHTN,GERBER,EDEMA 2D Dimensions LA Volume 141.80 mL LA Volume Index 68.50 mL/m2 (M/F) 16-34 M-Mode Dimensions RVDd 4.63 cm (0.9-2.6) LA Diam 5.68 cm (1.9-4.0) LVDd 4.57 cm (3.5-5.7) LVDs 3.47 cm (3.5-5.7) IVSd 0.84 cm (0.6-1.1) PWd 0.60 cm (0.6-1.1) EF (Teich) 48.10% FS 24.10% EDV (Teich) 95.90 mL TAPSE 2.39 (<1.7) ESV (Teich) 49.80 mL LV Diastology E Decel Time 123 (160-240 msec) E/A Ratio 2.0 Aortic Valve LIN Index 0.99 cm2/m2 AoV Peak Wesley. 179.0 (50-130 cm/s) AO Peak GR. 12.80 mmHg AO Mean GR. 5.40 (<5 mmHg) AO VTI 27.3 (18-25 cm) LIN (VTI) 2.09 (2.5-4.5 cm2) Mitral Valve MV E Max Wesley. 82.0 (40-130 cm/s) MV A Velocity 40.0 (40-130 cm/s) E/A Ratio 2.07 MV PHT 36.0 ms Pulmonary Valve PV Peak Velocity 78.0 (50-150 cm/s) Tricuspid Valve TR P. Velocity 416.00 cm/s RAP Estimate 10.00 mmHg RVSP 79.40 mmHg Left Ventricle The left ventricle is normal size. The left ventricular systolic function is normal. The left ventricular ejection fraction is within the normal range. There is increased LV wall thickness. Septal flattening is noted, consistent with right-sided pressure/volume overload. Diastolic function is indeterminate. LVEF is 55%. Right Ventricle Right ventricle is severely dilated. Right ventricle is moderately hypokinetic. Atria Left atrium is severely dilated. Right atrium is severely dilated. There is no Doppler evidence of interatrial shunt. Aortic Valve Aortic valve is mildly thickened. There is no aortic valvular stenosis. Trace aortic regurgitation. Mitral Valve The mitral valve leaflets are mildly thickened. No evidence of mitral valve stenosis. Moderate to severe mitral regurgitation. The MR jet is eccentric and posteriorly directed. Tricuspid Valve The tricuspid valve leaflets are thin and pliable. Severe tricuspid regurgitation. RVSP is > 60 mmHg. Pulmonic Valve The pulmonary valve is normal in structure. Mild pulmonic regurgitation. Great Vessels The aortic root is normal in size. The ascending aorta is not well-visualized. The IVC is dilated. Pericardium There is a small sized, anterior pericardial effusion present. The largest pocket measures 0.3 cm in diastole. No echo indications of tamponade. Pleural effusion and ascites are incidentally noted. Other Information Study Quality: Fair Conclusion Normal LV systolic function. Severe RV dilation with moderate reduction in RV function. Severe biatrial dilation. Severe TR. Moderate to severe MR. The MR jet is eccentric and posteriorly directed. Mild PI. RVSP > 60 mmHg. Small sized, anterior pericardial effusion is present. The largest pocket measures 0.3 cm in diastole. No echo indications of tamponade. Pleural effusion and ascites are present. Electronically signed by : Yun Agudelo MD 07/10/2024 23:55:01
== END 2024-07-03 23:59 | disposition home or self-care (01) ==
LOC: RT 11:01
PROVIDERS: PCP Nurse Practitioner Family; Visit Provider Nurse Practitioner
DX: I34.0 Nonrheumatic mitral (valve) insufficiency (principal); I07.1 Rheumatic tricuspid insufficiency; R06.02 Shortness of breath; R60.0 Localized edema; I27.20 Pulmonary hypertension, unspecified
CPT/HCPCS: 93306

== ENCOUNTER 2024-07-07 11:29 | Outpatient (CLI) | payer MEDICARE, SELFPAY ==
[2024-07-07 12:34] LABS: Anion Gap 7.5 mEq/L (5-15); Blood Urea Nitrogen 34 mg/dl (9-20); Calcium 7.4 mg/dl (8.4-10.2); Carbon Dioxide 33 mmol/L (22.0-30.0); Chloride 101 mmol/L (98-107); Estimated Glomerular Filt Rate 48 ml/min (>60); GFR (African American) 58 ML/MIN (>60); Glucose 147 mg/dl (74-100); Potassium 4.5 mmoL/L (3.5-5.1); Sodium 137 mmol/L (136-145)
== END 2024-07-07 23:59 | disposition home or self-care (01) ==
LOC: LAB 11:30
PROVIDERS: PCP Nurse Practitioner Family; Visit Provider Nurse Practitioner
DX: I50.30 Unspecified diastolic (congestive) heart failure (principal); I48.21 Permanent atrial fibrillation; I27.20 Pulmonary hypertension, unspecified; E78.5 Hyperlipidemia, unspecified; I34.0 Nonrheumatic mitral (valve) insufficiency; I07.1 Rheumatic tricuspid insufficiency; E11.59 Type 2 diabetes mellitus with other circulatory complications; R60.0 Localized edema; R06.02 Shortness of breath
CPT/HCPCS: 36415; 80048

== ENCOUNTER 2024-07-13 08:39 | Inpatient (IN) | payer MEDICARE, SELFPAY ==
[2024-07-13] VITALS (8 sets, daily range): BP systolic 103–131; BP diastolic 44–79; PULSE 55–103; RESP 16–21; TEMP 36.4–36.8; O2SAT 94–97; BMI 28.7; BMI 28.5; BMI 29.0
--- NOTE | 2024-07-13 10:51 | ECG_ITS ---
APPROVED REPORT Exam: Resting ECG HR:94 bpm ECG Measurements Heart Rate 94 AXES QRSd 128 QRS 107 QT 348 T 0 QTc 399 Conclusion ATRIAL FIBRILLATION WITH ABERRANT CONDUCTION OR VENTRICULAR PREMATURE COMPLEXES RIGHT AXIS DEVIATION [QRS AXIS > 100] RIGHT BUNDLE BRANCH BLOCK [120+ ms QRS DURATION, UPRIGHT V1, 40+ ms S IN I/aVL/V4/V5/V6] ABNORMAL ECG Electronically signed by : AVIS STEEL, 07/13/2024 16:57:39
--- NOTE | 2024-07-13 11:17 | PC.NURSE ---
Dr. Mcnamara at bedside
--- NOTE | 2024-07-13 11:23 | PC.NURSE ---
DR STEEL AT BEDSIDE
--- NOTE | 2024-07-13 11:33 | XR_ITS ---
FINAL REPORT CLINICAL HISTORY: Shortness of breath/CHF COMPARISON: 10/25/2021 FINDINGS: A single portable view of the chest was obtained. The heart is enlarged. There is worsening pulmonary vascular congestion. The mediastinum is within normal limits. Small right and moderate to large left pleural effusions are noted. There is bibasilar atelectasis. The bony thorax is intact. IMPRESSION: Bilateral pleural effusions and bibasilar atelectasis. Cardiomegaly with worsening pulmonary vascular congestion. Reviewed, Interpreted and Dictated by Dick Leggett III, MD Transcribed by Samia Chin Authenticated and . [facility]
--- NOTE | 2024-07-13 11:36 | ED_ITS ---
Discharge Plan Disposition Patient Disposition: Admitted Prescriptions Prescriptions: No Action amoxicillin 500 mg capsule 500 mg PO TID 10 Days Qty: 30 0RF bumetanide 2 mg tablet 2 mg PO BID Qty: 60 3RF spironolactone [Aldactone] 25 mg tablet 25 mg PO DAILY Qty: 30 5RF mupirocin 2 % ointment 1 applic topical TID 10 Days Qty: 22 0RF albuterol sulfate 90 mcg/actuation HFA aerosol inhaler 2 puff inhalation Q4-6H PRN (Reason: shortness of breath or wheezing) Qty: 8.5 0RF metoprolol succinate 25 mg tablet extended release 24 hr 25 mg PO DAILY 90 Days Qty: 90 1RF glipizide 5 mg tablet See Rx Instructions .ROUTE .COMPLEX Qty: 90 0RF Dose Instruction: TAKE ONE TABLET BY MOUTH ONCE A DAY FOR DIABETES Rx Instructions: TAKE ONE TABLET BY MOUTH ONCE A DAY FOR DIABETES (DME) Accu-Chek SmartView Test Strip Strip See Rx Instructions .Route Qty: 100 3RF Rx Instructions: As directed once daily empagliflozin 10 mg tablet 10 mg PO DAILY Qty: 90 3RF Eliquis 5 mg tablet 5 mg PO BID 90 Days Qty: 180 0RF metformin 500 mg tablet extended release 24 hr 500 mg PO DAILY Qty: 90 3RF Referrals Follow up/Referrals: Mohini Shrestha APRN [Primary Care Provider] - See instructions Clinical Impressions Clinical Impression: CHF (congestive heart failure), Anemia, Anasarca, Volume overload Print Language Print Language: Setswana Discharge ED Provider: Yung Mcnaamra HPI General Chief Complaint: Shortness of Breath/Dyspnea Stated Complaint: Edema Time Seen by Provider: 07/13/24 09:00 Mode of Arrival: Ambulatory Limitations: No Limitations Description of Symptoms (Recalled from ER Triage Doc. by RN): PT REPORTS ONGOING SHORTNESS OF BREATH AND EDEMA TO BLE AND SCROTUM FOR 1-2 WEEKS History of Present Illness HPI narrative: Patient is a 88-year-old male with past medical history of heart failure, chronic edema, hypothyroidism who presents emergency department for evaluation of shortness of breath and edema as a transfer from cardiology clinic. Over the last 1 to 2 weeks he has had worsening shortness of breath however he is still ambulatory and able to complete his activities of daily living. He has had worsening swelling, his dry weight is approximately 180 pounds. Recently his Lasix was changed to Bumex and Aldactone for which she has been compliant over the last week. He presented to cardiology clinic today who transferred him here for continued evaluation due to significant volume overload. Patient does not have any chest pain at this time and is still having good urine output with his diuretics. He skipped his dose yesterday for oriental orthodox but has otherwise been compliant. Related Data Previous Rx's ?Medication ?Instructions ?Recorded metoprolol succinate 25 mg 25 mg PO DAILY 90 days #90 tabs 12/04/23 tablet,extended release 24 hr albuterol sulfate 90 mcg/actuation 2 puff inhalation Q4-6H PRN 01/03/24 aerosol inhaler shortness of breath or wheezing #8.5 grams mupirocin 2 % topical ointment 1 applic topical TID 10 days #22 02/10/24 grams glipizide 5 mg tablet See Rx Instructions .Route 04/20/24 .COMPLEX #90 tabs blood sugar diagnostic (Accu-Chek #100 ea 04/28/24 SmartView Test Strips) apixaban 5 mg tablet (Eliquis) 5 mg PO BID 90 days #180 tabs 05/22/24 empagliflozin 10 mg tablet 10 mg PO DAILY Diabetes #90 tabs 05/22/24 amoxicillin 500 mg capsule 500 mg PO TID 10 days #30 caps 06/22/24 bumetanide 2 mg tablet 2 mg PO BID #60 tabs 06/30/24 metformin 500 mg tablet,extended 500 mg PO DAILY #90 tabs 07/06/24 release 24 hr spironolactone 25 mg tablet 25 mg PO DAILY #30 tabs 07/07/24 (Aldactone) Allergies Allergy/AdvReac Type Severity Reaction Status Date / Time No Known Allergies Allergy Verified 07/07/24 10:40 [facility] Disclaimer: The information contained in this section may have been updated after the patient was seen, as this information can be updated by other users. Medical History Muscle cramp, nocturnal Skin lesion Ear lesion Skin cancer Diabetes Hyperlipidemia LDL goal <100 Hypertension Atrial fibrillation Pallor Anemia Severe tricuspid regurgitation Pulmonary HTN Moderate mitral regurgitation History of COVID-19 Abnormal electrocardiography Dyspnea Social History Smoking Status: Never smoker second hand exposure: No alcohol intake: never substance use type: denies use current occupational status: retired Travel in the last 8 weeks: Inside the [place] household members: spouse housing: house current occupational exposures/hazards: No caffeine: Yes Other Medical History Have you received the Flu Vaccine for this season: No Have you received the Pneumonia Vaccine: Yes ROS Obtained: Yes Systems reviewed as appropriate & no additional complaints except as documented Physical Exam General General appearance: alert and in no apparent distress Head Head exam: atraumatic and normocephalic Eye Eye exam: Present PERRL ENT ENT exam: Present mucous membranes moist Neck Neck exam: Present normal inspection Chest Chest inspection: Present normal inspection and symmetric chest wall rise Respiratory Respiratory exam: Present normal lung sounds bilaterally; Absent respiratory distress Cardiovascular Cardiovascular exam: Present regular rate and normal rhythm Abdominal Exam Abdominal exam: Present soft, distention and other (Anasarca with pitting edema in the abdominal wall); Absent tenderness Extremities Exam Extremities exam: Present other (Diffuse severe pitting edema bilateral lower extremities, scrotum) Neurological Exam Neurological exam: Present alert and oriented X3 Psychiatric Psychiatric exam: Present normal affect Skin Skin exam: Present warm and dry HEART Score HEART Score HEART Score assessment performed?: Yes History (anamnesis): Slightly suspicious ECG: Non-specific disturbance Age: >65 years Risk factors: 1-2 risk factors Troponin: </= normal limit HEART Score: 4 Critical Care Critical Care Time Critical Care Time: No Medical Decision Making Samson Inquiry Pt receiving controlled substance: No Vital Signs Vital Signs: 07/13/24 11:00 07/13/24 11:00 07/13/24 11:30 Temperature 97.5 F L Temperature Source Oral Pulse Rate 90 97 H Pulse Rate [Apical] 100 H Respiratory Rate 20 20 18 Blood Pressure 114/65 122/78 Blood Pressure [Left Arm] 122/44 L Blood Pressure Mean 92 Blood Pressure Mean [Left Arm] 70 Blood Pressure Source [Left Arm] Automatic Cuff Blood Pressure Position [Left Arm] Sitting 02 Sat by Pulse Oximetry 96 96 97 Oxygen Delivery Method Room Air Room Air Room Air 07/13/24 12:00 07/13/24 12:30 Temperature Temperature Source Pulse Rate 91 H Pulse Rate [Apical] Respiratory Rate 21 16 Blood Pressure 131/79 123/68 Blood Pressure [Left Arm] Blood Pressure Mean 96 93 Blood Pressure Mean [Left Arm] Blood Pressure Source [Left Arm] Blood Pressure Position [Left Arm] 02 Sat by Pulse Oximetry 95 94 L Oxygen Delivery Method Room Air Room Air Lab Data Labs: Lab Results 07/13/24 10:58: WBC 5.4, RBC 3.90 L, Hgb 8.2 L, Hct 27.2 L, MCV 69.7 L, MCH 21.0 L, MCHC 30.2 L, RDW 17.6 H, Plt Count 369, MPV 7.4, Neut % (Auto) 65.7, Lymph % (Auto) 22.7, [place] % (Auto) 9.7 H, Eos % (Auto) 1.2, Baso % (Auto) 0.8, Neut # (Auto) 3.5, Lymph # (Auto) 1.2, [place] # (Auto) 0.5, Eos # (Auto) 0.1, Baso # (Auto) 0.0, Sodium 135 L, Potassium 3.8, Chloride 100, Carbon Dioxide 34 H, A nion Gap 4.8 L, BUN 23 H, Creatinine 1.40 H, Estimated Creat Clear 47, Estimated GFR 48 L, Est GFR ( Amer) 58 L, Glucose 177 H, Calcium 7.6 L, Total Bilirubin 0.5, AST 31, ALT 18, Alkaline Phosphatase 85, Troponin I 0.02, N T-Pro-B Natriuret Pep 1210 H, Total Protein 4.9 L, Albumin 2.5 L, Globulin 2.4, Albumin/Globulin Ratio 1.0 L, TSH 12.30 H, Free T4 1.05 07/13/24 10:58 07/13/24 10:58 Response Orders (Tests/Meds): ED MEDICATIONS Discontinued Medications Generic Name Dose Route Start Last Admin Trade Name Freq PRN Reason Stop Dose Admin Bumetanide 2 mg 07/13/24 11:33 07/13/24 11:46 Bumetanide 1mg/4ml Vial IV 07/13/24 11:34 2 mg ONCE ONE Administration ORDERS Category Date Time Status CXR --portable [XR chest portable] Stat Exams 07/13/24 11:33 Completed POCUS Point of Care (ER Only) Stat Exams 07/13/24 11:18 Completed BNP [NT Pro Brain Natriuretic Pep.] Stat Lab 07/13/24 10:58 Completed CBC w/Auto Diff [Complete Blood Count Auto Diff] Stat Lab 07/13/24 10:58 Completed CMP [Comprehensive Metabolic Panel] Stat Lab 07/13/24 10:58 Completed Complete Blood Count Auto Diff AMLAB Lab 07/14/24 06:00 Ordered Comprehensive Metabolic Panel AMLAB Lab 07/14/24 06:00 Ordered Free T4 (Free Thyroxine) Stat Lab 07/13/24 10:58 Completed Magnesium AMLAB Lab 07/14/24 06:00 Ordered TSH [Thyroid Stimulating Hormone] Stat Lab 07/13/24 10:58 Completed Trop I [Troponin I] Stat Lab 07/13/24 10:58 Completed Troponin I Q3H Lab 07/13/24 14:45 Ordered Troponin I Q3H Lab 07/13/24 17:45 Ordered ECG Data Tracing #1: ECG Narrative: Independently interpreted by me rate is 94, rhythm is irregular, no ST elevation in anatomical contiguous leads, QTc 399. MDM Narrative Medical Decision Narrative: In summary patient is 88-year-old male past medical history described above who presents emergency department for evaluation of volume overload as a transfer patient from clinic with in the setting of heart failure. Patient is hemodynamically stable upon arrival, afebrile. Patient's dry weight is 180 pounds, weight today will be obtained. He has been compliant with his medications with the exception of yesterday for which he did not take his diuretics in the morning. Patient was given 2 mg of IV Bumex. Differential includes worsening CHF, among others. Hematologic labs to be obtained screening for cardiorenal syndrome. EKG will be obtained as well as troponin to gauge his chronic myocardial injury. Initial workup reviewed by me, no significant leukocytosis, anemia which is slightly worse than prior however has no clinical evidence of bleeding and is likely related to chronic disease, stable creatinine, no critical electrolyte abnormality, initial troponin 0.02. TSH is elevated however T4 is normal so I do not think that his thyroid is playing into his volume retention. The case was discussed with cardiology who provides additional history, patient was in her chair all weekend and is largely unable to ambulate due to his swelling and they recommend inpatient management at this time. Patient's dry weight is 180 anyways 198 today. 2 mg of Bumex had 750 mL out in 1 hour. Case discussed with Dr. Sun regarding management who agrees and patient be admitted to their service for continued evaluation at this time. Indication: Shortness of breath and swelling Identified cardiac views: Cardiac parasternal long and parasternal short axis Findings: Cardiac activity present, gross wall motion normal, decreased global ejection fraction, no large pericardial effusion Impression: -From above Images were saved to permanent archive The study was technically adequate CPT: 32699 This study was performed by me, and I personally interpreted all images/videos. Based on my clinical judgement, these images were adequate and did not necessitate further imaging.
[2024-07-13 11:42] LABS: Basophils % 0.8 % (0.1-2.0); Eosinophils # 0.1 K/mm3 (0.0-0.4); Eosinophils % 1.2 % (0.1-12.0); Hematocrit 27.2 % (42.0-52.0); Hemoglobin 8.2 g/dL (14.1-18.0); Lymphocytes # 1.2 K/mm3 (0.7-4.5); Lymphocytes % 22.7 % (10-50); Mean Corpuscular HGB Conc 30.2 g/dL (31.8-35.4); Mean Corpuscular Volume 69.7 fl (80-94); Mean Platelet Volume 7.4 fl (7.4-10.4); Monocytes # 0.5 K/mm3 (0.1-1.0); Monocytes % 9.7 % (1.7-9.3); Neutrophils # 3.5 K/mm3 (1.8-7.8); Neutrophils % 65.7 % (37.0-80.0); Platelet Count 369 K/mm3 (142-424); Red Cell Distribution Width 17.6 % (11.5-17.5); White Blood Count 5.4 K/mm3 (4.8-10.8)
--- NOTE | 2024-07-13 11:45 | PC.NURSE ---
DR STEEL SPEAKING WITH CARDIOLOGY
[2024-07-13] MEDS: BUMETANIDE 1MG/4ML VIAL 2 MG IV ×2 (11:46→16:05)
[2024-07-13 11:48] LABS: Alanine Aminotransferase 18 U/L (12-78); Albumin Level 2.5 g/dl (3.5-5.0); Alkaline Phosphatase 85 U/L (38-126); Anion Gap 4.8 mEq/L (5-15); Aspartate Amino Transferase 31 U/L (17-59); Bilirubin,Total 0.5 mg/dl (0.2-1.3); Blood Urea Nitrogen 23 mg/dl (9-20); Calcium 7.6 mg/dl (8.4-10.2); Carbon Dioxide 34 mmol/L (22.0-30.0); Chloride 100 mmol/L (98-107); Creatinine Clearance Estimated 47 mL/min (50-200); Estimated Glomerular Filt Rate 48 ml/min (>60); GFR (African American) 58 ML/MIN (>60); Globulin 2.4 g/dL (1.3-3.2); Glucose 177 mg/dl (74-100); Potassium 3.8 mmoL/L (3.5-5.1); Sodium 135 mmol/L (136-145); Total Protein,Serum 4.9 g/dl (6.3-8.2)
[2024-07-13 12:01] LABS: NT Pro Brain Natriuretic Pep. 1210 pg/mL (0-450); Troponin I 0.02 ng/ml (0.00-0.034)
[2024-07-13 12:05] LABS: Free T4 (Free Thyroxine) 1.05 ng/dl (0.78-2.19)
--- NOTE | 2024-07-13 13:08 | PC.NURSE ---
Report called to Megan on floor
--- NOTE | 2024-07-13 13:47 | EXP.HP ---
History of Present Illness *Admission Date: 07/13/24 *Reason for visit:: Swollen legs, dyspnea with exertion *History of present illness: Mr. Justice is an 88-year-old gentleman who presented the ER with complaint of shortness of breath and edema. Recently seen by cardiology and was concern for failure of outpatient treatment for CHF and volume overload. States his edema has been getting worse, has edema and his abdomen and scrotum. Worsening over the past 3 weeks. Failed Bumex as an outpatient. Weight is up almost 20 pounds. Has been having increased dyspnea with exertion. Denies orthopnea and states that he is able to sleep on his side without significant pillows. On workup in the ER, found to have elevated BNP of 1200, kidney function at baseline with BUN 23, creatinine 1.4. Electrolytes normal potassium 3.8, sodium 135. White count normal at 5.4. Anemic with hemoglobin of 8.2. Medicine consulted for admission and further management of his volume overload and heart failure exacerbation. He denies any chest pain or pressure. He denies any fever, chills, nausea, vomiting or diarrhea. He does have orthopnea associated with his shortness of breath and edema. The patient reports that he has been taking his Bumex as prescribed except for yesterday when he went to religion. [facility] Disclaimer: The information contained in this section may have been updated after the patient was seen, as this information can be updated by other users. Medical History Anemia Anasarca Acute on chronic heart failure with preserved ejection fraction (HFpEF) Muscle cramp, nocturnal Skin lesion Ear lesion Skin cancer Diabetes Hyperlipidemia LDL goal <100 Hypertension Atrial fibrillation Pallor Anemia Severe tricuspid regurgitation Pulmonary HTN Moderate mitral regurgitation History of COVID-19 Abnormal electrocardiography Dyspnea Family History Other No significant family history Social History Smoking Status: Never smoker second hand exposure: No alcohol intake: never substance use type: denies use current occupational status: retired Travel in the last 8 weeks: [place] the [place] household members: spouse housing: house current occupational exposures/hazards: No caffeine: Yes Other Medical History Have you received the Flu Vaccine for this season: No Have you received the Pneumonia Vaccine: Yes Review of Systems Review of Systems Review of systems (narrative): 14 point review of systems performed, pertinent positives and negatives as per HPI Meds Home Medications and Allergies Home Medications ?Medication ?Instructions ?Recorded ?Confirmed ?Type metoprolol succinate 25 mg 25 mg PO DAILY 90 days #90 tabs 12/04/23 07/13/24 Rx tablet,extended release 24 hr blood sugar diagnostic (Accu-Chek #100 ea 04/28/24 07/13/24 Rx SmartView Test Strips) apixaban 5 mg tablet (Eliquis) 5 mg PO BID 90 days #180 tabs 05/22/24 07/13/24 Rx bumetanide 2 mg tablet 2 mg PO BID #60 tabs 06/30/24 07/13/24 Rx metformin 500 mg tablet,extended 500 mg PO DAILY #90 tabs 07/06/24 07/13/24 Rx release 24 hr albuterol sulfate 90 mcg/actuation 2 puff inhalation Q4HP PRN 07/13/24 07/13/24 History aerosol inhaler shortness of breath or wheezing clindamycin HCl 300 mg capsule 300 mg PO TID 07/13/24 07/13/24 History empagliflozin 10 mg tablet 10 mg PO DAILY 07/13/24 07/13/24 History glipizide 5 mg tablet 5 mg PO DAILY 07/13/24 07/13/24 History spironolactone 25 mg tablet 25 mg PO DAILY 07/13/24 07/13/24 History (Aldactone) New Prescriptions to Start Prescriptions: Allergies Allergy/AdvReac Type Severity Reaction Status Date / Time No Known Allergies Allergy Verified 07/13/24 14:17 Exam Data for Last 24 hours Vital signs and Labs for Last 24 Hours: Temp Pulse Resp BP Pulse Ox O2 Del Method 98.3 F 96 H 19 114/69 95 Room Air 07/13/24 13:44 07/13/24 13:44 07/13/24 13:44 07/13/24 13:44 07/13/24 13:44 07/13/24 13:44 Laboratory Results - last 24 hr 07/13/24 10:58: WBC 5.4, RBC 3.90 L, Hgb 8.2 L, Hct 27.2 L, MCV 69.7 L, MCH 21.0 L, MCHC 30.2 L, RDW 17.6 H, Plt Count 369, MPV 7.4, Neut % (Auto) 65.7, Lymph % (Auto) 22.7, [place] % (Auto) 9.7 H, Eos % (Auto) 1.2, Baso % (Auto) 0.8, Neut # (Auto) 3.5, Lymph # (Auto) 1.2, [place] # (Auto) 0.5, Eos # (Auto) 0.1, Baso # (Auto) 0.0, Sodium 135 L, Potassium 3.8, Chloride 100, Carbon Dioxide 34 H, Anion Gap 4.8 L, BUN 23 H, Creatinine 1.40 H, Estimated Creat Clear 47, Estimated GFR 48 L, Est GFR ( Amer) 58 L, Glucose 177 H, Calcium 7.6 L, Total Bilirubin 0.5, AST 31, ALT 18, Alkaline Phosphatase 85, Troponin I 0.02, NT-Pro-B Natriuret Pep 1210 H, Total Protein 4.9 L, Albumin 2.5 L, Globulin 2.4, Albumin/Globulin Ratio 1.0 L, TSH 12.30 H, Free T4 1.05 I & O for Last 24 hours: Intake & Output 07/10/24 07/11/24 07/12/24 07/13/24 23:59 23:59 23:59 23:59 Output Total 1025 / 1025 Balance -1025 / -1025 Weight 91.626 kg Constitutional Constitutional: no acute distress, average body habitus, chronically ill appearing and cooperative *Routine HEENT Exam Head: Present normocephalic Eye: Present EOMI and PERRL ENT: Present mucous membranes moist *Routine Neck Exam Neck: Present supple; Absent lymphadenopathy *Routine Respiratory Exam Respiratory: Present CTA bilaterally and crackles (In bilateral base); Absent respiratory distress, rhonchi or wheezes *Routine Cardiovascular Exam Cardiovascular: Present RRR *Routine Abdominal Exam Abdominal: Present soft and normoactive bowel sounds; Absent tenderness Comments: Edema of abdominal wall *Routine Rectal Exam Rectal:: deferred *Routine Genitalia Exam Genitalia:: deferred *Routine Extremities Exam Extremities: Present edema (Plus edema to thighs, 2+ edema in abdomen); Absent cyanosis or clubbing *Routine Skin Exam Skin: Present intact and warm; Absent rash *Routine Neurological Exam Neurological: Present alert, oriented X3 and moving all extremities; Absent altered mental status Assessment and Plan *Assessment and plan (1) Acute on chronic heart failure with preserved ejection fraction (HFpEF): Status: Acute Category: Medical Code(s): I50.33 - Acute on chronic diastolic (congestive) heart failure (2) Anasarca: Status: Acute Category: Medical Code(s): R60.1 - Generalized edema (3) Volume overload: Status: Acute Category: Medical Code(s): E87.70 - Fluid overload, unspecified (4) Hypothyroidism (acquired): Status: Acute Category: Medical Code(s): E03.9 - Hypothyroidism, unspecified (5) Severe tricuspid regurgitation: Status: Acute Category: Medical Code(s): I07.1 - Rheumatic tricuspid insufficiency (6) Moderate mitral regurgitation: Status: Acute Category: Medical Code(s): I34.0 - Nonrheumatic mitral (valve) insufficiency (7) Atrial fibrillation: Status: Acute Qualifiers: Atrial fibrillation type: permanent Qualified Code(s): I48.21 - Permanent atrial fibrillation Category: Medical Code(s): I48.91 - Unspecified atrial fibrillation (8) Hypertension: Status: Acute Qualifiers: Hypertension type: primary hypertension Qualified Code(s): I10 - Essential (primary) hypertension Category: Medical Code(s): I10 - Essential (primary) hypertension (9) Diabetes: Status: Acute Qualifiers: Diabetes mellitus complication detail: with other circulatory complications Diabetes mellitus complication status: with circulatory complication Diabetes mellitus longwall headgate operator insulin use: without usp use Diabetes mellitus type: type 2 Qualified Code(s): E11.59 - Type 2 diabetes mellitus with other circulatory complications Category: Medical Code(s): E11.9 - Type 2 diabetes mellitus without complications Plan 88-year-old male who presented to the ER because of worsening volume overload and exacerbation of heart failure with failure of outpatient therapy. Discussed case with ER physician, request admission for further management and diuresis. Medicine agreed to admit. Cardiology consulted to assist with care. Problems addressed as follows: Acute on chronic heart failure with preserved ejection fraction Hyperlipidemia Atrial fibrillation -Discussed case with cardiology, initiate aggressive diuresis with Bumex IV twice daily. Monitor for volume status. Has already put out at least 1 L since receiving diuretics in the ER. -Continue spironolactone 25 mg daily he -Reviewed recent echo showing severe RV dilation, moderate reduction in RV function. Severe TR and moderate to severe MR with elevated RVSP greater than 60. EF preserved -Lipid panel pending for the morning, consider statin in the morning. -Rate controlled on metoprolol succinate 25 mg daily, continue Eliquis 5 mg twice daily. -Continue Jardiance for HFpEF CKD 3: Creatinine at baseline 1.4. Repeat CBC, CMP, magnesium ordered for the morning. Diabetes: A1c pending. Sliding scale insulin with fingersticks ACHS. Holding home glipizide and metformin Full code Eliquis 5 mg twice daily Cardiac diet
--- NOTE | 2024-07-13 14:24 | P.CONCA_ITS ---
History of Present Illness History of Present Illness Consult date: 07/13/24 Requesting physician: Ruddy Sun Consult reason: congestive heart failure and shortness of breath Chief complaint: SOB and edema History of present illness: This is an 88-year-old white gentleman who presented to the emergency department complaints of shortness of breath and edema. The patient states that he has been having worsening edema for approximately 3 weeks but significantly worsened in the last week. He states that he has edema from his feet up to his scrotum. The patient states that he is short of breath with exertion but still able to complete all of his daily activities. It is worse with exertion and improves with rest. He states that his lower extremity edema is constant all the time it does slightly improve overnight but does not resolve. He states in the last week the edema started spreading up to his thighs and his scrotum. He has been coming to cardiology clinic weekly with adjustments in his medications which seemed to help with the edema just a little bit he says but does not help to resolve the edema. He has been offered hospital admission every week but he declined. He decided to come into the emergency department today due to the worsening edema. He did call cardiology clinic on his way to the emergency department to notify us that his symptoms had worsened and he was going to the emergency department. He denies any chest pain or pressure. He denies any fever, chills, nausea, vomiting or diarrhea. He does have orthopnea associated with his shortness of breath and edema. The patient reports that he has been taking his Bumex as prescribed except for yesterday when he went to [facility]. [facility] Disclaimer: The information contained in this section may have been updated after the patient was seen, as this information can be updated by other users. Medical History (Updated 07/13/24 @ 14:30 by Leatha Chirinos APRN) Anemia Anasarca Acute on chronic heart failure with preserved ejection fraction (HFpEF) Muscle cramp, nocturnal Skin lesion Ear lesion Skin cancer Diabetes Hyperlipidemia LDL goal <100 Hypertension Atrial fibrillation Pallor Anemia Severe tricuspid regurgitation Pulmonary HTN Moderate mitral regurgitation History of COVID-19 Abnormal electrocardiography Dyspnea Family History (Updated 07/13/24 @ 14:17 by Torie Ricks, RENAY) Other No significant family history Social History (Updated 07/13/24 @ 14:17 by Torie M Millicent, RN) Smoking Status: Never smoker second hand exposure: No alcohol intake: never substance use type: denies use current occupational status: retired Travel in the last 8 weeks: Inside the [place] household members: spouse housing: house current occupational exposures/hazards: No caffeine: Yes Review of Systems Review of Systems Review of systems:: pertinent systems reviewed and negative unless documented below Constitutional Constitutional: Reports system reviewed and no additional complaints, except as documented and Reports lethargy Eyes Eyes: Reports system reviewed and no additional complaints, except as documented ENT Ears, Nose, Mouth, and Throat: Reports system reviewed and no additional complaints, except as documented *Cardiovascular Cardiovascular: Reports system reviewed and no additional complaints, except as documented, Reports dyspnea, Reports dyspnea on exertion, Reports leg edema, Reports orthopnea and Reports pedal edema *Respiratory Respiratory: Reports system reviewed and no additional complaints, except as documented, Reports dyspnea and Reports dyspnea on exertion *Gastrointestinal Gastrointestinal: Reports system reviewed and no additional complaints, except as documented and Reports bloating (Abdominal edema) *Genitourinary Genitourinary: Reports system reviewed and no additional complaints, except as documented and Reports scrotal swelling *Musculoskeletal Musculoskeletal: Reports system reviewed and no additional complaints, except as documented Integumentary/Breasts Skin/Breast: Reports system reviewed and no additional complaints, except as documented *Neurologic Neurologic: Reports system reviewed and no additional complaints, except as documented Psychiatric Psychiatric: Reports system reviewed and no additional complaints, except as documented Endocrine Endocrine: Reports system reviewed and no additional complaints, except as documented Hematologic/Lymphatic Hematologic/Lymphatic: Reports system reviewed and no additional complaints, except as documented Allergic/Immunologic Allergic/Immunologic: Reports system reviewed and no additional complaints, except as documented Exam Data for Last 24 hours Vital signs and Labs for Last 24 Hours: Temp Pulse Resp BP Pulse Ox O2 Del Method 98.3 F 96 H 19 114/69 95 Room Air 07/13/24 13:44 07/13/24 13:44 07/13/24 13:44 07/13/24 13:44 07/13/24 13:44 07/13/24 13:46 Laboratory Results - last 24 hr 07/13/24 10:58: WBC 5.4, RBC 3.90 L, Hgb 8.2 L, Hct 27.2 L, MCV 69.7 L, MCH 21.0 L, MCHC 30.2 L, RDW 17.6 H, Plt Count 369, MPV 7.4, Neut % (Auto) 65.7, Lymph % (Auto) 22.7, [place] % (Auto) 9.7 H, Eos % (Auto) 1.2, Baso % (Auto) 0.8, Neut # (Auto) 3.5, Lymph # (Auto) 1.2, [place] # (Auto) 0.5, Eos # (Auto) 0.1, Baso # (Auto) 0.0, Sodium 135 L, Potassium 3.8, Chloride 100, Carbon Dioxide 34 H, Anion Gap 4.8 L, BUN 23 H, Creatinine 1.40 H, Estimated Creat Clear 47, Estimated GFR 48 L, Est GFR ( Amer) 58 L, Glucose 177 H, Calcium 7.6 L, Total Bilirubin 0.5, AST 31, ALT 18, Alkaline Phosphatase 85, Troponin I 0.02, NT-Pro-B Natriuret Pep 1210 H, Total Protein 4.9 L, Albumin 2.5 L, Globulin 2.4, Albumin/Globulin Ratio 1.0 L, TSH 12.30 H, Free T4 1.05 I & O for Last 24 hours: Intake & Output 07/10/24 07/11/24 07/12/24 07/13/24 23:59 23:59 23:59 23:59 Output Total 1025 / 1025 Balance -1025 / -1025 Weight 202 lb Constitutional Constitutional: no acute distress and average body habitus *Routine HEENT Exam Head: Present normocephalic and atraumatic ENT: Present mucous membranes moist *Routine Neck Exam Neck: Present supple, full ROM and normal carotid upstroke; Absent JVD, carotid bruit or lymphadenopathy *Routine Respiratory Exam Respiratory: Present CTA bilaterally, normal respiratory effort, able to speak in complete sentences and symmetric chest movement *Routine Cardiovascular Exam Cardiovascular: Present Normal S1, Normal S2 and irregularly irregular; Absent murmur or gallop *Routine Abdominal Exam Abdominal: Present soft and normoactive bowel sounds; Absent tenderness, distended or organomegaly *Routine Exam Scrotal: Present swelling *Routine Extremities Exam Extremities: Present edema (3+ BLE up to bilateral thighs), full ROM, pulses intact and normal capillary refill; Absent cyanosis or clubbing *Routine Skin Exam Skin: Present intact and warm; Absent erythema *Routine Neurological Exam Neurological: Present alert, oriented X3 and CN II-XII intact; Absent sensory deficit or motor deficit Routine Psychiatric Exam Psychiatric: Present normal affect Meds Home Medications and Allergies Home Medications ?Medication ?Instructions ?Recorded ?Confirmed ?Type metoprolol succinate 25 mg 25 mg PO DAILY 90 days #90 tabs 12/04/23 07/13/24 Rx tablet,extended release 24 hr blood sugar diagnostic (Accu-Chek #100 ea 04/28/24 07/13/24 Rx SmartView Test Strips) apixaban 5 mg tablet (Eliquis) 5 mg PO BID 90 days #180 tabs 05/22/24 07/13/24 Rx bumetanide 2 mg tablet 2 mg PO BID #60 tabs 06/30/24 07/13/24 Rx metformin 500 mg tablet,extended 500 mg PO DAILY #90 tabs 07/06/24 07/13/24 Rx release 24 hr albuterol sulfate 90 mcg/actuation 2 puff inhalation Q4HP PRN 07/13/24 07/13/24 History aerosol inhaler shortness of breath or wheezing clindamycin HCl 300 mg capsule 300 mg PO TID 07/13/24 07/13/24 History empagliflozin 10 mg tablet 10 mg PO DAILY 07/13/24 07/13/24 History glipizide 5 mg tablet 5 mg PO DAILY 07/13/24 07/13/24 History spironolactone 25 mg tablet 25 mg PO DAILY 07/13/24 07/13/24 History (Aldactone) New Prescriptions to Start Prescriptions: Allergies Allergy/AdvReac Type Severity Reaction Status Date / Time No Known Allergies Allergy Verified 07/13/24 14:17 Assessment and Plan *Assessment and plan (1) Acute on chronic heart failure with preserved ejection fraction (HFpEF): Status: Acute Category: Medical Code(s): I50.33 - Acute on chronic diastolic (congestive) heart failure (2) Dyspnea: Status: Acute Qualifiers: Dyspnea type: dyspnea on exertion Qualified Code(s): R06.00 - Dyspnea, unspecified Category: Medical Code(s): R06.00 - Dyspnea, unspecified (3) Anasarca: Status: Acute Category: Medical Code(s): R60.1 - Generalized edema (4) Pulmonary HTN: Status: Acute Category: Medical Code(s): I27.20 - Pulmonary hypertension, unspecified (5) Atrial fibrillation: Status: Acute Qualifiers: Atrial fibrillation type: permanent Qualified Code(s): I48.21 - Permanent atrial fibrillation Category: Medical Code(s): I48.91 - Unspecified atrial fibrillation (6) Hypertension: Status: Acute Qualifiers: Hypertension type: primary hypertension Qualified Code(s): I10 - Essential (primary) hypertension Category: Medical Code(s): I10 - Essential (primary) hypertension (7) Hyperlipidemia LDL goal <100: Status: Acute Category: Medical Code(s): E78.5 - Hyperlipidemia, unspecified (8) Anemia: Status: Acute Category: Medical Code(s): D64.9 - Anemia, unspecified (9) Diabetes: Status: Acute Qualifiers: Diabetes mellitus complication detail: with other circulatory complications Diabetes mellitus complication status: with circulatory complication Diabetes mellitus continuous churn buttermaker insulin use: without mcc use Diabetes mellitus type: type 2 Qualified Code(s): E11.59 - Type 2 diabetes mellitus with other circulatory complications Category: Medical Code(s): E11.9 - Type 2 diabetes mellitus without complications Plan Plan: 1. The patient was admitted to the hospital for acute on chronic HFpEF. Will diurese the patient with Bumex 2 mg IV twice daily. 2. Continue spironolactone 25 mg p.o. daily for diuresis. 3. Recent echocardiogram shows normal ejection fraction with severe RV dilatation and moderaTE reduction in RV function. He had severe TR and moderate to severe MR with an RVSP greater than 60 mmHg. He also had a small pericardial effusion. The patient also had pleural effusion and ascites present. As mentioned above we will continue with diuresis. 4. His blood pressure is well-controlled. 5. His LDL goal is less than 100. Will get a lipid panel in the morning. 6. Continue Jardiance, and metoprolol for HFpEF. 7. The patient does have chronic atrial fibrillation. He is currently rate controlled. Continue metoprolol. 8. Continue Eliquis for long-term anticoagulation. 9. The patient does have a creatinine of 1.4. Will continue to follow. Will repeat a BMP in the morning. 10. If the patient does not have significant improvement in anasarca tomorrow consider changing him to a Bumex drip. 11. Further recommendations were made pending the patient's response to treatment. Thank you for the opportunity to help participate in the care of this patient. All recommendations and orders are per Dr. Agudelo.
--- NOTE | 2024-07-13 14:52 | HMH.PHAINT1 ---
Pharmacy Intervention Comments: MEDICATION RECONCILIATION COMPLETED ON PATIENT USING EXTERNAL FILL HISTORY FROM PHARMACY AND LIST FROM CARDIOLOGY/PCP OFFICE. -STEFAN EDGARD
--- NOTE | 2024-07-13 14:53 | PC.NURSE ---
Patient's instructed to bring patient's home meds when she comes back to the hospital. Explained insurance coverage for outpatient medications
[2024-07-13 15:43] LABS: Troponin I 0.02 ng/ml (0.00-0.034)
--- NOTE | 2024-07-13 15:50 | PC.NURSE ---
Dr. Sun at bedside
[2024-07-13 16:18] LABS: POC Glucose,Bedside 202 (70-110)
[2024-07-13] MEDS: humaLOG 100 UNITS/ML 10ML VIAL (SSI) SUBCUT ×2 (16:42→20:15)
--- NOTE | 2024-07-13 17:28 | PC.NURSE ---
Patient alert and oriented. VSS. On room air. Up with one. Voiding per urinal. Denies pain and nausea. Bumex IVP for fluid overload. Patient and family state understanding of keeping accurate urine output totals. at bedside throughout day.
[2024-07-13 19:34] LABS: Troponin I 0.02 ng/ml (0.00-0.034)
[2024-07-13] MEDS: APIXABAN 5MG TABLET 5 MG PO (20:15)
[2024-07-13 20:56] LABS: POC Glucose,Bedside 206 (70-110)
[2024-07-14] VITALS: BP 99/57; PULSE 85; RESP 20; TEMP 36.5; O2SAT 91
[2024-07-14 04:00] VITALS: BP 97/48; PULSE 85; RESP 16; TEMP 36.8; O2SAT 90; BMI 28.6
[2024-07-14] MEDS: LEVOTHYROXINE 25MCG (0.025MG) TAB 25 MCG PO (06:09)
[2024-07-14 06:35] LABS: POC Glucose,Bedside 95 (70-110)
[2024-07-14 06:56] LABS: Basophils % 0.6 % (0.1-2.0); Eosinophils # 0.1 K/mm3 (0.0-0.4); Eosinophils % 1.9 % (0.1-12.0); Hematocrit 25.5 % (42.0-52.0); Hemoglobin 7.8 g/dL (14.1-18.0); Lymphocytes # 1.3 K/mm3 (0.7-4.5); Lymphocytes % 26.7 % (10-50); Mean Corpuscular HGB Conc 30.4 g/dL (31.8-35.4); Mean Corpuscular Hemoglobin 20.7 pg (27.0-31.2); Mean Corpuscular Volume 68.1 fl (80-94); Monocytes # 0.5 K/mm3 (0.1-1.0); Monocytes % 10.4 % (1.7-9.3); Neutrophils # 2.9 K/mm3 (1.8-7.8); Neutrophils % 60.3 % (37.0-80.0); Platelet Count 305 K/mm3 (142-424); Red Blood Count 3.74 M/mm3 (4.60-6.20); Red Cell Distribution Width 17.5 % (11.5-17.5); White Blood Count 4.7 K/mm3 (4.8-10.8)
[2024-07-14 07:06] LABS: Alanine Aminotransferase 13 U/L (12-78); Albumin Level 2.3 g/dl (3.5-5.0); Alkaline Phosphatase 73 U/L (38-126); Anion Gap 2.4 mEq/L (5-15); Aspartate Amino Transferase 27 U/L (17-59); Bilirubin,Total 0.6 mg/dl (0.2-1.3); Blood Urea Nitrogen 23 mg/dl (9-20); Calcium 7.1 mg/dl (8.4-10.2); Carbon Dioxide 37 mmol/L (22.0-30.0); Chloride 101 mmol/L (98-107); Creatinine Clearance Estimated 48 mL/min (50-200); Estimated Glomerular Filt Rate 48 ml/min (>60); GFR (African American) 58 ML/MIN (>60); Globulin 2.3 g/dL (1.3-3.2); Glucose 86 mg/dl (74-100); Magnesium 2.1 mg/dl (1.6-2.3); Potassium 3.4 mmoL/L (3.5-5.1); Sodium 137 mmol/L (136-145); Total Protein,Serum 4.6 g/dl (6.3-8.2)
[2024-07-14 07:18] LABS: Total Iron Binding Capacity 314 ug/dL (261-462)
[2024-07-14 07:20] LABS: Chol/HDL Ratio 3.1 (1-3.5); Cholesterol 123 mg/dl (140-200); HDL Cholesterol 40 mg/dl (40-60); Triglycerides 117 mg/dl (30-150); VLDL Cholesterol 23 mg/dL (0-40)
[2024-07-14 07:31] LABS: Direct LDL Cholesterol 51.69 mg/dL (100-129)
[2024-07-14 07:37] LABS: Ferritin 9.91 ng/ml (17.9-464)
[2024-07-14 08:00] VITALS: BP 104/55; PULSE 84; RESP 18; TEMP 37.1; O2SAT 91
[2024-07-14 08:06] LABS: Iron 26 ug/dL (49-181)
[2024-07-14] MEDS: IRON SUCROSE COMPLEX 200 MG in 0.9 % SODIUM CHLORIDE 100 ML 220 MG IV (08:23)
[2024-07-14] MEDS: APIXABAN 5 MG 1 EACH PO ×2 (08:24→20:46)
[2024-07-14] MEDS: PT OWN MED *JARDIANCE 10 MG TAB 1 EACH PO (08:24)
[2024-07-14] MEDS: BUMETANIDE 1MG/4ML VIAL 2 MG IV ×2 (08:24→16:33)
[2024-07-14] MEDS: METOPROLOL SUCC 25 MG 1 EACH PO (08:25)
[2024-07-14] MEDS: SPIRONOLACTONE 25 MG 1 EACH PO (08:25)
[2024-07-14 09:10] LABS: Hemoglobin A1C 5.9 % (4.0-6.0)
--- NOTE | 2024-07-14 10:34 | EXP.CARD.PN ---
Subjective Subjective Date: 07/14/24 Time: 08:30 Principal diagnosis: acute on chronic HFpEF Interval history: This is an 88-year-old gentleman who was admitted for acute on chronic HFpEF. The patient states that his shortness of breath is improved but he is still having shortness of breath with exertion. It improves with rest. He denies any chest pain or pressure. He states that his edema has improved overnight. He states his abdomen does not feel as edematous as it did yesterday. His scrotal edema and bilateral lower extremity edema have improved as well. He denies any fever, chills, nausea, vomiting or diarrhea. Exam Data for Last 24 hours Vital signs and Labs for Last 24 Hours: Temp Pulse Resp BP Pulse Ox O2 Del Method 98.7 F 84 18 104/55 L 91 L Room Air 07/14/24 08:00 07/14/24 08:00 07/14/24 08:00 07/14/24 08:00 07/14/24 08:00 07/14/24 10:31 Laboratory Results - last 24 hr 07/13/24 10:58: WBC 5.4, RBC 3.90 L, Hgb 8.2 L, Hct 27.2 L, MCV 69.7 L, MCH 21.0 L, MCHC 30.2 L, RDW 17.6 H, Plt Count 369, MPV 7.4, Neut % (Auto) 65.7, Lymph % (Auto) 22.7, [place] % (Auto) 9.7 H, Eos % (Auto) 1.2, Baso % (Auto) 0.8, Neut # (Auto) 3.5, Lymph # (Auto) 1.2, [place] # (Auto) 0.5, Eos # (Auto) 0.1, Baso # (Auto) 0.0, Sodium 135 L, Potassium 3.8, Chloride 100, Carbon Dioxide 34 H, Anion Gap 4.8 L, BUN 23 H, Creatinine 1.40 H, Estimated Creat Clear 47, Estimated GFR 48 L, Est GFR ( Amer) 58 L, Glucose 177 H, Calcium 7.6 L, Total Bilirubin 0.5, AST 31, ALT 18, Alkaline Phosphatase 85, Troponin I 0.02, NT-Pro-B Natriuret Pep 1210 H, Total Protein 4.9 L, Albumin 2.5 L, Globulin 2.4, Albumin/Globulin Ratio 1.0 L, TSH 12.30 H, Free T4 1.05 07/13/24 14:56: Troponin I 0.02 07/13/24 16:09: POC Glucose 202 H 07/13/24 17:55: Troponin I 0.02 07/13/24 20:07: POC Glucose 206 H 07/14/24 06:09: POC Glucose 95 07/14/24 06:34: WBC 4.7 L, RBC 3.74 L, Hgb 7.8 L, Hct 25.5 L, MCV 68.1 L, MCH 20.7 L, MCHC 30.4 L, RDW 17.5, Plt Count 305, MPV 7.0 L, Neut % (Auto) 60.3, Lymph % (Auto) 26.7, [place] % (Auto) 10.4 H, Eos % (Auto) 1.9, Baso % (Auto) 0.6, Neut # (Auto) 2.9, Lymph # (Auto) 1.3, [place] # (Auto) 0.5, Eos # (Auto) 0.1, Baso # (Auto) 0.0, Sodium 137, Potassium 3.4 L, Chloride 101, Carbon Dioxide 37 H, Anion Gap 2.4 L, BUN 23 H, Creatinine 1.40 H, Estimated Creat Clear 48, Estimated GFR 48 L, Est GFR ( Amer) 58 L, Glucose 86 D, Hemoglobin A1c 5.9, Calcium 7.1 L, Magnesium 2.1, Iron 26 L, TIBC 314, Iron Saturation 8.55929 L, Ferritin 9.91 L, Total Bilirubin 0.6, AST 27, ALT 13 D, Alkaline Phosphatase 73, Total Protein 4.6 L, Albumin 2.3 L, Globulin 2.3, Albumin/Globulin Ratio 1.0 L, Triglycerides 117, Cholesterol 123 L, LDL Cholesterol Direct 51.69 L, VLDL Cholesterol 23, HDL Cholesterol 40, Cholesterol/HDL Ratio 3.1, TSH 10.10 H I & O for Last 24 hours: Intake & Output 07/11/24 07/12/24 07/13/24 07/14/24 23:59 23:59 23:59 23:59 Intake Total 840 / 1080 300 / 300 Output Total 3675 / 3675 200 / 200 Balance -2835 / -2595 100 / 100 Weight 202 lb 200 lb 2.876 oz Constitutional Constitutional: no acute distress and average body habitus *Routine HEENT Exam Head: Present normocephalic and atraumatic ENT: Present mucous membranes moist *Routine Neck Exam Neck: Present supple, full ROM and normal carotid upstroke; Absent JVD, carotid bruit or lymphadenopathy *Routine Respiratory Exam Respiratory: Present CTA bilaterally, normal respiratory effort, able to speak in complete sentences and symmetric chest movement *Routine Cardiovascular Exam Cardiovascular: Present Normal S1, Normal S2 and irregularly irregular; Absent murmur or gallop *Routine Abdominal Exam Abdominal: Present soft and normoactive bowel sounds; Absent tenderness, distended or organomegaly *Routine Exam Scrotal: Present swelling *Routine Extremities Exam Extremities: Present edema (2+ BLE up to bilateral thighs), full ROM, pulses intact and normal capillary refill; Absent cyanosis or clubbing *Routine Skin Exam Skin: Present intact and warm; Absent erythema *Routine Neurological Exam Neurological: Present alert, oriented X3 and CN II-XII intact; Absent sensory deficit or motor deficit Routine Psychiatric Exam Psychiatric: Present normal affect Progress Note: A&P Assessment and plan (1) Acute on chronic heart failure with preserved ejection fraction (HFpEF): Status: Acute (2) Anasarca: Status: Acute (3) Volume overload: Status: Acute (4) Hypothyroidism (acquired): Status: Acute (5) Atrial fibrillation: Status: Acute (6) Hypertension: Status: Acute (7) Diabetes: Status: Acute (8) Iron deficiency anemia: Status: Acute (9) Hyperlipidemia LDL goal <100: Status: Acute (10) Hypokalemia: Status: Acute Assessment and Plan Assessment and Plan for All Diagnoses:: Plan: 1. The patient was admitted to the hospital for acute on chronic HFpEF. He has been diuresed with IV Bumex. He has a -2800 fluid balance overnight. Will continue diuresed with IV Bumex at this time. 2. Increase spironolactone to 50 mg p.o. daily for diuresis and hypokalemia. 3. Recent echocardiogram shows normal ejection fraction with severe RV dilatation and moderate reduction in RV function. He had severe TR and moderate to severe MR with an RVSP greater than 60 mmHg. He also had a small pericardial effusion. The patient also had pleural effusion and ascites present. As mentioned above we will continue with diuresis. 4. His blood pressure is well-controlled. 5. His LDL goal is less than 100. LDL is 51. 6. Continue Jardiance, and metoprolol for HFpEF. 7. The patient does have chronic atrial fibrillation. He is currently rate controlled. Continue metoprolol. 8. Continue Eliquis for long-term anticoagulation. 9. His creatinine is stable at 1.4 today. Will repeat a BMP in the morning. 10. Start Entresto 24/26 mg p.o. twice daily for HFpEF. 11. Further recommendations will be made pending the patient's response to treatment. Thank you for the opportunity to help participate in the care of this patient. All recommendations and orders are per Dr. Agudelo.
[2024-07-14] MEDS: SPIRONOLACTONE 25MG TABLET 50 MG PO (11:24)
[2024-07-14 11:45] LABS: POC Glucose,Bedside 143 (70-110)
[2024-07-14] MEDS: POTASSIUM CHLORIDE 20MEQ TAB 40 MEQ PO ×2 (11:51→16:33)
[2024-07-14 12:00] VITALS: BP 98/57; PULSE 78; RESP 18; TEMP 36.9; O2SAT 93
--- OUTSIDE RECORDS SUMMARY | 2024-07-14 13:03 | XMS_ITS ---
Author Organization Unknown ALLERGIES AND ADVERSE REACTIONS No information ASSESSMENT No information CHIEF COMPLAINT No information Medications Date Medication Dosage Dosageunit Active Dispense Refills Ndccod e Srcstatus 4 00:00:00 Eliquis 5 MG Tablet 1 60 Tablet 1 02356572416 Start 4 00:00:00 Eliquis 5 MG Tablet 0 120 3 [id number] Stop 3 00:00:00 glipiZIDE 10 MG Tablet 1 30 Tablet 2 [id number] Start 3 00:00:00 glipiZIDE 10 MG Tablet 0 30 Tablet 1 [id number] Stop OBJECTIVE DATA No information PHYSICAL EXAMINATION No information TREATMENT PLAN No information PROBLEMS No information RESULTS No information REVIEW OF SYSTEMS No information SUBJECTIVE DATA No information VITAL SIGNS No information
--- OUTSIDE RECORDS SUMMARY | 2024-07-14 13:03 | XMS_ITS ---
Laboratory report Created on: May 15, 2024 SINCERE STONE : 1935 Sex: Male Author Name BETSY CEDILLO Organization Unknown PROBLEMS Problems List Code Description D72.819 D69.6 RESULTS Laboratory Orders Date Order Code Test 2022-12-13 176434 HEMATOPATH CONSU LTATION, SMEAR Laboratory Results Date LOINC Test Value Unit Reference Range Interpre tation 2022-12-13 61589-0 PATHOLOGIST CXE 2022-12-13 6690-2 WBC 3.5 X10E3/UL 3.4-10.8 2022-12-13 789-8 RBC 4.54 X10E6/UL 4.14-5.80 2022-12-13 718-7 HEMOGLOBIN 13.2 G/DL 13.0-17.7 2022-12-13 4544-3 HEMATOCRIT 39.5 % 37.5-51.0 2022-12-13 787-2 MCV 87 FL 79-97 2022-12-13 785-6 MCH 29.1 PG 26.6-33.0 2022-12-13 786-4 MCHC 33.4 G/DL 31.5-35.7 2022-12-13 788-0 RDW 14.4 % 11.6-15.4 2022-12-13 777-3 PLATELETS 146 X10E3/UL 150-450 L 2022-12-13 770-8 NEUTROPHILS 60 % 2022-12-13 736-9 LYMPHS 23 % 2022-12-13 5905-5 MONOCYTES 12 % 2022-12-13 713-8 EOS 3 % 2022-12-13 706-2 BASOS 1 % 2022-12-13 751-8 NEUTROPHILS (ABSOLUTE) 2.1 X10E3/UL 1.4-7.0 2022-12-13 731-0 LYMPHS (ABSOLUTE) .8 X10E3/UL 0.7-3.1 2022-12-13 742-7 MONOCYTES(ABSOLUTE) .4 X10E3/UL 0.1-0.9 2022-12-13 711-2 EOS (ABSOLUTE) .1 X10E3/UL 0.0-0.4 2022-12-13 704-7 BASO (ABSOLUTE) 0 X10E3/UL 0.0-0.2 2022-12-13 70159-4 IMMATURE GRANULOCYTES 1 % 2022-12-13 76862-5 IMMATURE GRANS (ABS) 0 X10E3/UL 0.0-0.1
--- OUTSIDE RECORDS SUMMARY | 2024-07-14 13:03 | XMS_ITS ---
Laboratory report Created on: May 15, 2024 BERTHA SINCERE : 1935 Sex: Male Author Organization Unknown PROBLEMS Problems List Code Description RESULTS Laboratory Orders Date Order Code Test 2023-11-13 [id number] TRIIODOTHYRONINE (T3), FREE Laboratory Results Date LOINC Test Value Unit Reference Range Interpre tation 2023-11-13 3051-0 TRIIODOTHYRONINE (T3), FREE 2.5 PG/ML 2.0-4.4
--- OUTSIDE RECORDS SUMMARY | 2024-07-14 13:03 | XMS_ITS ---
Laboratory report Created on: May 15, 2024 BERTHA SINCERE : 1935 Sex: Male Author Organization Unknown PROBLEMS Problems List Code Description RESULTS Laboratory Orders Date Order Code Test 2024-02-10 [id number] TRIIODOTHYRONINE (T3), FREE Laboratory Results Date LOINC Test Value Unit Reference Range Interpre tation 2024-02-10 3051-0 TRIIODOTHYRONINE (T3), FREE 2.5 PG/ML 2.0-4.4
--- OUTSIDE RECORDS SUMMARY | 2024-07-14 13:03 | XMS_ITS ---
Laboratory report Created on: May 15, 2024 SINCERE STONE : 1935 Sex: Male Author Name BETSY CEDILLO Organization Unknown PROBLEMS Problems List Code Description Z00.00 E11.65 E78.00 I10 RESULTS Laboratory Orders Date Order Code Test 2022-11-06 [id number] CBC WITH DIFFERE NTIAL/PLATELET 2022-11-06 252897 COMP. METABOLIC PANEL (14) 2022-11-06 419135 LIPID PANEL 2022-11-06 196674 HEMOGLOBIN A1C Laboratory Results Date LOINC Test Value Unit Reference Range Interpre tation 2022-11-06 6690-2 WBC 3 X10E3/UL 3.4-10.8 L 2022-11-06 789-8 RBC 4.66 X10E6/UL 4.14-5.80 2022-11-06 718-7 HEMOGLOBIN 13.4 G/DL 13.0-17.7 2022-11-06 4544-3 HEMATOCRIT 41 % 37.5-51.0 2022-11-06 787-2 MCV 88 FL 79-97 2022-11-06 785-6 MCH 28.8 PG 26.6-33.0 2022-11-06 786-4 MCHC 32.7 G/DL 31.5-35.7 2022-11-06 788-0 RDW 14.5 % 11.6-15.4 2022-11-06 777-3 PLATELETS 146 X10E3/UL 150-450 L 2022-11-06 770-8 NEUTROPHILS 57 % 2022-11-06 736-9 LYMPHS 25 % 2022-11-06 5905-5 MONOCYTES 12 % 2022-11-06 713-8 EOS 4 % 2022-11-06 706-2 BASOS 1 % 2022-11-06 751-8 NEUTROPHILS (ABSOLUTE) 1.8 X10E3/UL 1.4-7.0 2022-11-06 731-0 LYMPHS (ABSOLUTE) .7 X10E3/UL 0.7-3.1 2022-11-06 742-7 MONOCYTES(ABSOLUTE) .4 X10E3/UL 0.1-0.9 2022-11-06 711-2 EOS (ABSOLUTE) .1 X10E3/UL 0.0-0.4 2022-11-06 704-7 BASO (ABSOLUTE) 0 X10E3/UL 0.0-0.2 2022-11-06 44209-8 IMMATURE GRANULOCYTES 1 % 2022-11-06 70842-2 IMMATURE GRANS (ABS) 0 X10E3/UL 0.0-0.1 2022-11-06 2345-7 GLUCOSE 218 MG/DL 70-99 H 2022-11-06 3094-0 BUN 24 MG/DL 8-27 2022-11-06 2160-0 CREATININE 1.16 MG/DL 0.76-1.27 2022-11-06 75715-2 EGFR 62 ML/MIN/1.7 3 >59 2022-11-06 3097-3 BUN/CREATININE RATIO 21 10-24 2022-11-06 2951-2 SODIUM 141 MMOL/L 734-365 7829-03-07 2823-3 POTASSIUM 4.1 MMOL/L 3.5-5.2 2022-11-06 2075-0 CHLORIDE 99 MMOL/L 96-106 2022-11-06 2028-9 CARBON DIOXIDE, TOTAL 27 MMOL/L 20-29 2022-11-06 67498-8 CALCIUM 8.9 MG/DL 8.6-10.2 2022-11-06 2885-2 PROTEIN, TOTAL 6.8 G/DL 6.0-8.5 2022-11-06 1751-7 ALBUMIN 4.3 G/DL 3.6-4.6 2022-11-06 14494-6 GLOBULIN, TOTAL 2.5 G/DL 1.5-4.5 2022-11-06 1759-0 A/G RATIO 1.7 1.2-2.2 2022-11-06 1975-2 BILIRUBIN, TOTAL .6 MG/DL 0.0-1.2 2022-11-06 6768-6 ALKALINE PHOSPHATASE 109 IU/L 44-121 2022-11-06 1920-8 AST (SGOT) 22 IU/L 0-40 2022-11-06 1742-6 ALT (SGPT) 13 IU/L 0-44 2022-11-06 2093-3 CHOLESTEROL, TOTAL 164 MG/DL 006-568 2036-03-07 2571-8 TRIGLYCERIDES 98 MG/DL 0-149 2022-11-06 2085-9 HDL CHOLESTEROL 55 MG/DL >39 2022-11-06 69955-4 VLDL CHOLESTEROL JOLYNN 18 MG/DL 5-40 2022-11-06 96675-0 LDL CHOL CALC ([facility]) 91 MG/DL 0-99 2022-11-06 4548-4 HEMOGLOBIN A1C 6.6 % 4.8-5.6 H
--- OUTSIDE RECORDS SUMMARY | 2024-07-14 13:03 | XMS_ITS ---
Author Organization [facility] No information ASSESSMENT No information CHIEF COMPLAINT No information Medications Date Medication Dosage Dosageunit Active Dispense Refills Ndccod e Srcstatus 4 00:00:00 Eliquis 5 MG Tablet 1 60 Tablet 1 [id number] Start 4 00:00:00 Eliquis 5 MG Tablet 0 120 3 [id number] Stop 3 00:00:00 glipiZIDE 10 MG Tablet 1 30 Tablet 2 [id number] Start 3 00:00:00 glipiZIDE 10 MG Tablet 0 30 Tablet 1 [id number] Stop OBJECTIVE DATA No information PHYSICAL EXAMINATION No information TREATMENT PLAN No information PROBLEMS No information RESULTS No information REVIEW OF SYSTEMS No information SUBJECTIVE DATA No information VITAL SIGNS No information
[2024-07-14] MEDS: SACUBITRIL/VALSARTAN 24-26MG TABLET 1 EACH PO ×2 (13:27→20:47)
--- NOTE | 2024-07-14 14:49 | P.PN_ITS ---
Subjective *Date: 07/14/24 *Time: 14:49 Exam Data for Last 24 hours Vital signs and Labs for Last 24 Hours: Temp Pulse Resp BP Pulse Ox O2 Del Method 98.5 F 78 18 98/57 L 93 L Room Air 07/14/24 12:00 07/14/24 12:00 07/14/24 12:00 07/14/24 12:00 07/14/24 12:00 07/14/24 12:00 Laboratory Results - last 24 hr 07/13/24 14:56: Troponin I 0.02 07/13/24 16:09: POC Glucose 202 H 07/13/24 17:55: Troponin I 0.02 07/13/24 20:07: POC Glucose 206 H 07/14/24 06:09: POC Glucose 95 07/14/24 06:34: WBC 4.7 L, RBC 3.74 L, Hgb 7.8 L, Hct 25.5 L, MCV 68.1 L, MCH 20.7 L, MCHC 30.4 L, RDW 17.5, Plt Count 305, MPV 7.0 L, Neut % (Auto) 60.3, Lymph % (Auto) 26.7, [place] % (Auto) 10.4 H, Eos % (Auto) 1.9, Baso % (Auto) 0.6, Neut # (Auto) 2.9, Lymph # (Auto) 1.3, [place] # (Auto) 0.5, Eos # (Auto) 0.1, Baso # (Auto) 0.0, Sodium 137, Potassium 3.4 L, Chloride 101, Carbon Dioxide 37 H, Anion Gap 2.4 L, BUN 23 H, Creatinine 1.40 H, Estimated Creat Clear 48, Estimated GFR 48 L, Est GFR ( Amer) 58 L, Glucose 86 D, Hemoglobin A1c 5.9, Calcium 7.1 L, Magnesium 2.1, Iron 26 L, TIBC 314, Iron Saturation 8.37656 L, Ferritin 9.91 L, Total Bilirubin 0.6, AST 27, ALT 13 D, Alkaline Phosphatase 73, Total Protein 4.6 L, Albumin 2.3 L, Globulin 2.3, Albumin/Globulin Ratio 1.0 L, Triglycerides 117, Cholesterol 123 L, LDL Cholesterol Direct 51.69 L, VLDL Cholesterol 23, HDL Cholesterol 40, Cholesterol/HDL Ratio 3.1, TSH 10.10 H 07/14/24 11:26: POC Glucose 143 H I & O for Last 24 hours: Intake & Output 07/11/24 07/12/24 07/13/24 07/14/24 23:59 23:59 23:59 23:59 Intake Total 840 / 1080 300 / 300 Output Total 3675 / 3675 950 / 950 Balance -2835 / -2595 -650 / -650 Weight 91.626 kg 90.8 kg Constitutional Constitutional: no acute distress and average body habitus *Routine HEENT Exam Head: Present normocephalic and atraumatic ENT: Present mucous membranes moist *Routine Neck Exam Neck: Present supple, full ROM and normal carotid upstroke; Absent JVD, carotid bruit or lymphadenopathy *Routine Respiratory Exam Respiratory: Present CTA bilaterally, normal respiratory effort, able to speak in complete sentences and symmetric chest movement *Routine Cardiovascular Exam Cardiovascular: Present Normal S1, Normal S2 and irregularly irregular; Absent murmur or gallop *Routine Abdominal Exam Abdominal: Present soft and normoactive bowel sounds; Absent tenderness, distended or organomegaly *Routine Exam Scrotal: Present swelling *Routine Extremities Exam Extremities: Present edema (2+ BLE up to bilateral thighs), full ROM, pulses intact and normal capillary refill; Absent cyanosis or clubbing *Routine Skin Exam Skin: Present intact and warm; Absent erythema *Routine Neurological Exam Neurological: Present alert, oriented X3 and CN II-XII intact; Absent sensory deficit or motor deficit Routine Psychiatric Exam Psychiatric: Present normal affect Assessment and Plan *Assessment and plan (1) Acute on chronic heart failure with preserved ejection fraction (HFpEF): Status: Acute Category: Medical Code(s): I50.33 - Acute on chronic diastolic (congestive) heart failure (2) Anasarca: Status: Acute Category: Medical Code(s): R60.1 - Generalized edema (3) Volume overload: Status: Acute Category: Medical Code(s): E87.70 - Fluid overload, unspecified (4) Hypothyroidism (acquired): Status: Acute Category: Medical Code(s): E03.9 - Hypothyroidism, unspecified (5) Severe tricuspid regurgitation: Status: Acute Category: Medical Code(s): I07.1 - Rheumatic tricuspid insufficiency (6) Moderate mitral regurgitation: Status: Acute Category: Medical Code(s): I34.0 - Nonrheumatic mitral (valve) insufficiency (7) Atrial fibrillation: Status: Acute Qualifiers: Atrial fibrillation type: permanent Qualified Code(s): I48.21 - Permanent atrial fibrillation Category: Medical Code(s): I48.91 - Unspecified atrial fibrillation (8) Hypertension: Status: Acute Qualifiers: Hypertension type: primary hypertension Qualified Code(s): I10 - Essential (primary) hypertension Category: Medical Code(s): I10 - Essential (primary) hypertension (9) Diabetes: Status: Acute Qualifiers: Diabetes mellitus type: type 2 Diabetes mellitus terminal computer operator insulin use: without terminal computer operator use Diabetes mellitus complication status: with circulatory complication Diabetes mellitus complication detail: with other circulatory complications Qualified Code(s): E11.59 - Type 2 diabetes mellitus with other circulatory complications Category: Medical Code(s): E11.9 - Type 2 diabetes mellitus without complications Plan 88-year-old male who presented to the ER because of worsening volume overload and exacerbation of heart failure with failure of outpatient therapy. Discussed case with ER physician, request admission for further management and diuresis. Medicine agreed to admit. Cardiology consulted to assist with care. Problems addressed as follows: #Acute on chronic heart failure with preserved ejection fraction #Right heart failure #Anasarca ?Patient's fluid status has improved today, but continues to have mild to moderate anasarca up to abdomen. Continues to be well saturated on room air. ? Continue IV Bumex 2 mg twice daily, spironolactone 50 mg, Jardiance 10 mg. ? Cardiology consulted, assisting with care with above recommendations. Started Entresto today. #Atrial fibrillation Currently rate controlled, continue metoprolol and Eliquis. #Hypothyroidism ? TSH elevated to 10.1, free T4 normal 1.05. ? Elevated TSH potentially reactive in the setting of acute illness. Will need follow-up in the outpatient setting and possible titration of levothyroxine. ? Continue home levothyroxine 25 mcg. CKD 3: Creatinine at baseline 1.4. Repeat CBC, CMP, magnesium ordered for the morning. Diabetes: A1c 7.1. Sliding scale insulin with fingersticks ACHS. Holding home glipizide and metformin Full code Eliquis 5 mg twice daily Cardiac diet
[2024-07-14 16:00] VITALS: BP 88/53; PULSE 72; RESP 18; TEMP 36.8; O2SAT 94
[2024-07-14 16:40] LABS: POC Glucose,Bedside 146 (70-110)
--- NOTE | 2024-07-14 17:39 | PC.NURSE ---
A&OX4. TOLERATING RA WELL. PATIENT HAS HAD A VERY GOOD DAY. IS AT BEDSIDE AT ALL TIMES, AND ASSISTS HIM WHEN NEEDED. PATIENT HAS CONTINUED TO HAVE ADEQUATE URINE OUTPUT THIS SHIFT. SWELLING TO BLE AND ABD SEEM TO BE GOING DOWN. PATIENT STATES HE IS FEELING MUCH BETTER. DID GET OUT AND AMBULATE IN HALLWAY, AND HAS AMBULATED IN ROOM TO BATHROOM MULTIPLE TIMES, TOLERATING WELL. HAS HAD A GREAT APPETITE. HAS HAD NO NEEDS OR C/O. VSS.
[2024-07-14] MEDS: humaLOG 100 UNITS/ML 10ML VIAL (SSI) SUBCUT (20:46)
[2024-07-14 21:01] LABS: POC Glucose,Bedside 161 (70-110)
[2024-07-15] VITALS (7 sets, daily range): BP systolic 82–113; BP diastolic 44–58; PULSE 70–86; RESP 16–18; TEMP 36.3–37.4; O2SAT 90–94; BMI 28.8
[2024-07-15] MEDS: LEVOTHYROXINE 25MCG (0.025MG) TAB 25 MCG PO (07:18)
[2024-07-15 08:02] LABS: Anion Gap 5.8 mEq/L (5-15); Blood Urea Nitrogen 21 mg/dl (9-20); Calcium 7.3 mg/dl (8.4-10.2); Carbon Dioxide 32 mmol/L (22.0-30.0); Chloride 101 mmol/L (98-107); Creatinine Clearance Estimated 51 mL/min (50-200); Estimated Glomerular Filt Rate 52 ml/min (>60); GFR (African American) 63 ML/MIN (>60); Glucose 109 mg/dl (74-100); Potassium 3.8 mmoL/L (3.5-5.1); Sodium 135 mmol/L (136-145)
[2024-07-15 08:03] LABS: Basophils % 0.7 % (0.1-2.0); Eosinophils # 0.2 K/mm3 (0.0-0.4); Eosinophils % 4.6 % (0.1-12.0); Hematocrit 27.6 % (42.0-52.0); Hemoglobin 8.4 g/dL (14.1-18.0); Lymphocytes # 0.7 K/mm3 (0.7-4.5); Lymphocytes % 16.9 % (10-50); Mean Corpuscular HGB Conc 30.5 g/dL (31.8-35.4); Mean Corpuscular Hemoglobin 21.4 pg (27.0-31.2); Mean Corpuscular Volume 70.1 fl (80-94); Mean Platelet Volume 7.4 fl (7.4-10.4); Monocytes # 0.4 K/mm3 (0.1-1.0); Monocytes % 9.6 % (1.7-9.3); Neutrophils # 2.7 K/mm3 (1.8-7.8); Neutrophils % 68.2 % (37.0-80.0); Platelet Count 298 K/mm3 (142-424); Red Blood Count 3.94 M/mm3 (4.60-6.20); Red Cell Distribution Width 17.7 % (11.5-17.5)
[2024-07-15 08:21] LABS: Alanine Aminotransferase 16 U/L (12-78); Albumin Level 2.5 g/dl (3.5-5.0); Alkaline Phosphatase 78 U/L (38-126); Aspartate Amino Transferase 57 U/L (17-59); Bilirubin,Direct 0.4 mg/dl (0.0-0.4); Bilirubin,Indirect 0.4 mg/dL (0.0-0.9); Bilirubin,Total 0.8 mg/dl (0.2-1.3); Bilirubin,Unconjugated 0.4 mg/dL (0.0-1.1); Magnesium 2.1 mg/dl (1.6-2.3); Total Protein,Serum 4.9 g/dl (6.3-8.2)
[2024-07-15] MEDS: APIXABAN 5 MG 1 EACH PO (08:24)
[2024-07-15] MEDS: METOPROLOL SUCC 25 MG 1 EACH PO (08:24)
[2024-07-15] MEDS: PT OWN MED *JARDIANCE 10 MG TAB 1 EACH PO (08:24)
[2024-07-15] MEDS: SACUBITRIL/VALSARTAN 24-26MG TABLET 1 EACH PO (08:25)
[2024-07-15] MEDS: BUMETANIDE 1MG/4ML VIAL 2 MG IV ×2 (08:31→16:35)
--- NOTE | 2024-07-15 11:05 | EXP.CARD.PN ---
Subjective Subjective Date: 07/15/24 Time: 08:30 Principal diagnosis: acute on chronic HFpEF Interval history: This is an 88-year-old gentleman who was admitted with acute on chronic HFpEF. The patient states his shortness of breath is improved but he still has a little shortness of breath with exertion. His edema is also improving. He states that his abdominal edema has improved significantly but is still present a little bit. He reports that the edema in his bilateral lower extremities is continuing to improve, he states the right leg is much better but his left leg is still little more swollen than normal. His scrotal edema is improving. He denies any chest pain or pressure. He denies any fever, chills, nausea, vomiting or diarrhea. Exam Data for Last 24 hours Vital signs and Labs for Last 24 Hours: Temp Pulse Resp BP Pulse Ox O2 Del Method 97.7 F 71 17 82/45 L 92 L Room Air 07/15/24 08:00 07/15/24 08:00 07/15/24 08:00 07/15/24 08:00 07/15/24 08:00 07/15/24 09:00 Laboratory Results - last 24 hr 07/14/24 11:26: POC Glucose 143 H 07/14/24 16:32: POC Glucose 146 H 07/14/24 20:45: POC Glucose 161 H 07/15/24 07:34: WBC 4.0 L, RBC 3.94 L, Hgb 8.4 L, Hct 27.6 L, MCV 70.1 L, MCH 21.4 L, MCHC 30.5 L, RDW 17.7 H, Plt Count 298, MPV 7.4, Neut % (Auto) 68.2, Lymph % (Auto) 16.9, [place] % (Auto) 9.6 H, Eos % (Auto) 4.6, Baso % (Auto) 0.7, Neut # (Auto) 2.7, Lymph # (Auto) 0.7, [place] # (Auto) 0.4, Eos # (Auto) 0.2, Baso # (Auto) 0.0, Sodium 135 L, Potassium 3.8, Chloride 101, Carbon Dioxide 32 H, Anion Gap 5.8, BUN 21 H, Creatinine 1.30 H, Estimated Creat Clear 51, Estimated GFR 52 L, Est GFR ( Amer) 63, Glucose 109 H, Calcium 7.3 L, Magnesium 2.1, Total Bilirubin 0.8, Direct Bilirubin 0.4, Conjugated Bilirubin 0.0, Indirect Bilirubin 0.4, Unconjugated Bilirubin 0.4, AST 57 D, ALT 16, Alkaline Phosphatase 78, Total Protein 4.9 L, Albumin 2.5 L I & O for Last 24 hours: Intake & Output 07/12/24 07/13/24 07/14/24 07/15/24 23:59 23:59 23:59 23:59 Intake Total 840 / 1080 1020 / 1380 720 / 720 Output Total 3675 / 3675 3075 / 3250 275 / 275 Balance -2835 / -2595 -2055 / -1870 445 / 445 Weight 202 lb 200 lb 2.876 oz 201 lb 0.985 oz Constitutional Constitutional: no acute distress and average body habitus *Routine HEENT Exam Head: Present normocephalic and atraumatic ENT: Present mucous membranes moist *Routine Neck Exam Neck: Present supple, full ROM and normal carotid upstroke; Absent JVD, carotid bruit or lymphadenopathy *Routine Respiratory Exam Respiratory: Present CTA bilaterally, normal respiratory effort, able to speak in complete sentences and symmetric chest movement *Routine Cardiovascular Exam Cardiovascular: Present Normal S1, Normal S2 and irregularly irregular; Absent murmur or gallop *Routine Abdominal Exam Abdominal: Present soft and normoactive bowel sounds; Absent tenderness, distended or organomegaly *Routine Exam Scrotal: Present swelling *Routine Extremities Exam Extremities: Present edema (2+ BLE up to bilateral thighs), full ROM, pulses intact and normal capillary refill; Absent cyanosis or clubbing *Routine Skin Exam Skin: Present intact and warm; Absent erythema *Routine Neurological Exam Neurological: Present alert, oriented X3 and CN II-XII intact; Absent sensory deficit or motor deficit Routine Psychiatric Exam Psychiatric: Present normal affect Progress Note: A&P Assessment and plan (1) Acute on chronic heart failure with preserved ejection fraction (HFpEF): Status: Acute (2) Anasarca: Status: Acute (3) Volume overload: Status: Acute (4) Hypothyroidism (acquired): Status: Acute (5) Atrial fibrillation: Status: Acute (6) Hypertension: Status: Acute (7) Diabetes: Status: Acute (8) Iron deficiency anemia: Status: Acute (9) Hyperlipidemia LDL goal <100: Status: Acute Assessment and Plan Assessment and Plan for All Diagnoses:: Plan: 1. The patient was admitted to the hospital for acute on chronic HFpEF. He is being diuresed with IV Bumex. He is a -2 L fluid balance tonight. His symptoms have improved but he is still having 2+ bilateral lower extremity edema more in the left than the right. Will continue IV Bumex at this time. Anticipate switching him over to oral Bumex with discharge tomorrow. 2. Continue spironolactone for diuresis. 3. Recent echocardiogram shows normal ejection fraction with severe RV dilatation and moderate reduction in RV function. He had severe TR and moderate to severe MR with an RVSP greater than 60 mmHg. He also had a small pericardial effusion. The patient also had pleural effusion and ascites present. As mentioned above we will continue with diuresis. 4. His blood pressure is low this morning. Stop Entresto due to hypotension. 5. His LDL goal is less than 100. LDL is 51. 6. Continue Jardiance and metoprolol for HFpEF. 7. The patient does have chronic atrial fibrillation. He is currently rate controlled. Continue metoprolol. 8. Continue Eliquis for long-term anticoagulation. 9. His creatinine is stable at 1.3 today. Will repeat a BMP in the morning. 10. Further recommendations will be made pending the patient's response to treatment. Thank you for the opportunity to help participate in the care of this patient. All recommendations and orders are per Dr. Agudelo.
--- NOTE | 2024-07-15 12:37 | EXP.PN ---
Subjective *Date: 07/15/24 *Time: 12:37 Interval history: Patient is doing well today, continues to have improvement with fluid status with Bumex diuresis. Will likely need 1 more day for diuresing for anticipated discharge tomorrow. Denies chest pain, shortness of breath. Exam Data for Last 24 hours Vital signs and Labs for Last 24 Hours: Temp Pulse Resp BP Pulse Ox O2 Del Method 97.7 F 71 17 82/45 L 92 L Room Air 07/15/24 08:00 07/15/24 08:00 07/15/24 08:00 07/15/24 08:00 07/15/24 08:00 07/15/24 11:00 Laboratory Results - last 24 hr 07/14/24 16:32: POC Glucose 146 H 07/14/24 20:45: POC Glucose 161 H 07/15/24 07:34: WBC 4.0 L, RBC 3.94 L, Hgb 8.4 L, Hct 27.6 L, MCV 70.1 L, MCH 21.4 L, MCHC 30.5 L, RDW 17.7 H, Plt Count 298, MPV 7.4, Neut % (Auto) 68.2, Lymph % (Auto) 16.9, [place] % (Auto) 9.6 H, Eos % (Auto) 4.6, Baso % (Auto) 0.7, Neut # (Auto) 2.7, Lymph # (Auto) 0.7, [place] # (Auto) 0.4, Eos # (Auto) 0.2, Baso # (Auto) 0.0, Sodium 135 L, Potassium 3.8, Chloride 101, Carbon Dioxide 32 H, Anion Gap 5.8, BUN 21 H, Creatinine 1.30 H, Estimated Creat Clear 51, Estimated GFR 52 L, Est GFR ( Amer) 63, Glucose 109 H, Calcium 7.3 L, Magnesium 2.1, Total Bilirubin 0.8, Direct Bilirubin 0.4, Conjugated Bilirubin 0.0, Indirect Bilirubin 0.4, Unconjugated Bilirubin 0.4, AST 57 D, ALT 16, Alkaline Phosphatase 78, Total Protein 4.9 L, Albumin 2.5 L I & O for Last 24 hours: Intake & Output 11/10/24 11/11/24 11/12/24 11/13/24 23:59 23:59 23:59 23:59 Intake Total 840 / 1080 1020 / 1380 720 / 720 Output Total 3675 / 3675 3075 / 3250 1175 / 1175 Balance -2835 / -2595 -2055 / -1870 -455 / -455 Weight 91.626 kg 90.8 kg 91.2 kg Constitutional Constitutional: no acute distress *Routine HEENT Exam Head: Present normocephalic Eye: Present EOMI and PERRL ENT: Present mucous membranes moist *Routine Neck Exam Neck: Present supple; Absent lymphadenopathy *Routine Respiratory Exam Respiratory: Present CTA bilaterally *Routine Cardiovascular Exam Cardiovascular: Present RRR *Routine Abdominal Exam Abdominal: Present soft and normoactive bowel sounds; Absent tenderness *Routine Exam Scrotal: Present swelling *Routine Extremities Exam Extremities: Absent cyanosis, clubbing or edema *Routine Skin Exam Skin: Present warm; Absent rash *Routine Neurological Exam Neurological: Present alert and oriented X3 Routine Psychiatric Exam Psychiatric: Present normal affect Assessment and Plan *Assessment and plan (1) Acute on chronic heart failure with preserved ejection fraction (HFpEF): Status: Acute Category: Medical Code(s): I50.33 - Acute on chronic diastolic (congestive) heart failure (2) Anasarca: Status: Acute Category: Medical Code(s): R60.1 - Generalized edema (3) Volume overload: Status: Acute Category: Medical Code(s): E87.70 - Fluid overload, unspecified (4) Hypothyroidism (acquired): Status: Acute Category: Medical Code(s): E03.9 - Hypothyroidism, unspecified (5) Severe tricuspid regurgitation: Status: Acute Category: Medical Code(s): I07.1 - Rheumatic tricuspid insufficiency (6) Moderate mitral regurgitation: Status: Acute Category: Medical Code(s): I34.0 - Nonrheumatic mitral (valve) insufficiency (7) Atrial fibrillation: Status: Acute Qualifiers: Atrial fibrillation type: permanent Qualified Code(s): I48.21 - Permanent atrial fibrillation Category: Medical Code(s): I48.91 - Unspecified atrial fibrillation (8) Hypertension: Status: Acute Qualifiers: Hypertension type: primary hypertension Qualified Code(s): I10 - Essential (primary) hypertension Category: Medical Code(s): I10 - Essential (primary) hypertension (9) Diabetes: Status: Acute Qualifiers: Diabetes mellitus type: type 2 Diabetes mellitus watermelon inspector insulin use: without watermelon inspector use Diabetes mellitus complication status: with circulatory complication Diabetes mellitus complication detail: with other circulatory complications Qualified Code(s): E11.59 - Type 2 diabetes mellitus with other circulatory complications Category: Medical Code(s): E11.9 - Type 2 diabetes mellitus without complications Plan 88-year-old male who presented to the ER because of worsening volume overload and exacerbation of heart failure with failure of outpatient therapy. Discussed case with ER physician, request admission for further management and diuresis. Medicine agreed to admit. Cardiology consulted to assist with care. Problems addressed as follows: #Acute on chronic heart failure with preserved ejection fraction #Right heart failure #Anasarca ?Patient's fluid status continues to improve today, but continues to have mild to moderate anasarca up to abdomen. Continues to be well saturated on room air. ? Has had about 3.3 L output over the past 24 hours. ? Continue IV Bumex 2 mg twice daily, Jardiance 10 mg. Holding spironolactone due to soft pressures. ? Cardiology consulted, assisting with care with above recommendations. Stopped Entresto due to soft pressures today. #Atrial fibrillation Currently rate controlled, continue metoprolol and Eliquis. #Hypothyroidism ? TSH elevated to 10.1, free T4 normal 1.05. ? Elevated TSH potentially reactive in the setting of acute illness. Will need follow-up in the outpatient setting and possible titration of levothyroxine. ? Increase levothyroxine from 25 mcg to 50 mcg. #Iron deficiency anemia ? Iron studies indicate iron deficiency. Iron 26, ferritin 9.91, iron saturation 8.2%. TIBC 314. ? Venofer given on 07/15/2024. ? Started on ferrous sulfate 3 times daily. CKD 3: Creatinine at baseline 1.4. Repeat CBC, CMP, magnesium ordered for the morning. Diabetes: A1c 7.1. Sliding scale insulin with fingersticks ACHS. Holding home glipizide and metformin Full code Eliquis 5 mg twice daily Cardiac diet
[2024-07-15] MEDS: humaLOG 100 UNITS/ML 10ML VIAL (SSI) SUBCUT ×2 (16:36→20:21)
[2024-07-15 17:11] LABS: POC Glucose,Bedside 156 (70-110)
[2024-07-15] MEDS: FERROUS SULFATE 325MG TABLET 325 MG PO (20:21)
[2024-07-15] MEDS: APIXABAN 5MG TABLET 5 MG PO (20:21)
[2024-07-16 03:34] VITALS: BP 87/40; PULSE 77; RESP 16; TEMP 36.7; O2SAT 90
[2024-07-16 04:00] VITALS: BMI 27.9
[2024-07-16] MEDS: LEVOTHYROXINE 50MCG (0.05MG) TAB 50 MCG PO (06:07)
[2024-07-16 06:12] LABS: POC Glucose,Bedside 90 (70-110)
--- NOTE | 2024-07-16 06:25 | PC.NURSE ---
Pt A&OX4 and has tolerated room air. 2+ edema noted to BLE. Diuresing with Bumex. Pt has had good urine output this shift. He has ambulated to the bathroom independently. has remained at beside throughout the shift. No complaints at this time, call light within reach.
[2024-07-16 07:00] LABS: Basophils % 0.6 % (0.1-2.0); Eosinophils # 0.1 K/mm3 (0.0-0.4); Eosinophils % 3.3 % (0.1-12.0); Hematocrit 25.8 % (42.0-52.0); Hemoglobin 7.8 g/dL (14.1-18.0); Lymphocytes # 0.7 K/mm3 (0.7-4.5); Lymphocytes % 17.9 % (10-50); Mean Corpuscular HGB Conc 30.1 g/dL (31.8-35.4); Mean Corpuscular Hemoglobin 20.9 pg (27.0-31.2); Mean Corpuscular Volume 69.2 fl (80-94); Mean Platelet Volume 7.1 fl (7.4-10.4); Monocytes # 0.4 K/mm3 (0.1-1.0); Monocytes % 10.5 % (1.7-9.3); Neutrophils # 2.8 K/mm3 (1.8-7.8); Neutrophils % 67.7 % (37.0-80.0); Platelet Count 296 K/mm3 (142-424); Red Blood Count 3.73 M/mm3 (4.60-6.20); White Blood Count 4.1 K/mm3 (4.8-10.8)
[2024-07-16 07:16] LABS: Anion Gap 5.2 mEq/L (5-15); Blood Urea Nitrogen 21 mg/dl (9-20); Calcium 7.1 mg/dl (8.4-10.2); Carbon Dioxide 34 mmol/L (22.0-30.0); Chloride 100 mmol/L (98-107); Creatinine Clearance Estimated 54 mL/min (50-200); Estimated Glomerular Filt Rate 57 ml/min (>60); GFR (African American) 69 ML/MIN (>60); Glucose 81 mg/dl (74-100); Potassium 3.2 mmoL/L (3.5-5.1); Sodium 136 mmol/L (136-145)
[2024-07-16 07:51] LABS: Alanine Aminotransferase 11 U/L (12-78); Albumin Level 2.1 g/dl (3.5-5.0); Alkaline Phosphatase 79 U/L (38-126); Aspartate Amino Transferase 24 U/L (17-59); Bilirubin,Direct 0.3 mg/dl (0.0-0.4); Bilirubin,Indirect 0.2 mg/dL (0.0-0.9); Bilirubin,Total 0.5 mg/dl (0.2-1.3); Bilirubin,Unconjugated 0.3 mg/dL (0.0-1.1); Magnesium 2.1 mg/dl (1.6-2.3); Total Protein,Serum 4.1 g/dl (6.3-8.2)
[2024-07-16 08:00] VITALS: BP 92/52; PULSE 94; RESP 20; TEMP 36.3; O2SAT 92
[2024-07-16] MEDS: FERROUS SULFATE 325MG TABLET 325 MG PO (09:44)
[2024-07-16] MEDS: BUMETANIDE 1 MG TABLET 2 MG PO (09:44)
[2024-07-16] MEDS: POTASSIUM CHLORIDE 20MEQ TAB 40 MEQ PO (09:44)
[2024-07-16] MEDS: POLYETHYLENE GLYCOL 3350 17 GM PACKET PO (09:44)
[2024-07-16] MEDS: APIXABAN 5MG TABLET 5 MG PO (09:45)
[2024-07-16] MEDS: EMPAGLIFLOZIN 10MG TABLET 10 MG PO (09:45)
[2024-07-16] MEDS: METOPROLOL SUCCINATE XL 25MG TABLET 25 MG PO (09:45)
--- NOTE | 2024-07-16 09:47 | CA_ITS ---
FINAL REPORT TECHNIQUE: Color Doppler, duplex Doppler and compression sonography of the left lower extremity deep venous systems was performed. CLINICAL HISTORY: left leg edema FINDINGS: There is no evidence of deep venous thrombosis from the level of the groin to the calf. The veins are patent and compressible. IMPRESSION: No evidence of deep venous thrombosis left lower extremity. Reviewed, Interpreted and Dictated by Dick Leggett III, MD Transcribed by Tiffanie Veras Authenticated and [facility]
--- NOTE | 2024-07-16 11:23 | P.PN_ITS ---
Subjective Subjective Date: 07/16/24 Time: 08:15 Principal diagnosis: acute on chronic HFpEF Interval history: This is an 88-year-old gentleman who was admitted for acute on chronic HFpEF. He has been diuresed with IV Bumex. He is down 7 pounds today. He states that his shortness of breath and edema have both significantly improved and he is feeling much better. He denies any chest pain or pressure. He denies any fever, chills, nausea, vomiting or diarrhea. Exam Data for Last 24 hours Vital signs and Labs for Last 24 Hours: Temp Pulse Resp BP Pulse Ox O2 Del Method 97.4 F L 94 H 20 92/52 L 92 L Room Air 07/16/24 08:00 07/16/24 08:00 07/16/24 08:00 07/16/24 08:00 07/16/24 08:00 07/16/24 09:00 Laboratory Results - last 24 hr 07/15/24 16:30: POC Glucose 156 H 07/16/24 05:58: POC Glucose 90 07/16/24 06:01: WBC 4.1 L, RBC 3.73 L, Hgb 7.8 L, Hct 25.8 L, MCV 69.2 L, MCH 20.9 L, MCHC 30.1 L, RDW 18.0 H, Plt Count 296, MPV 7.1 L, Neut % (Auto) 67.7, Lymph % (Auto) 17.9, [place] % (Auto) 10.5 H, Eos % (Auto) 3.3, Baso % (Auto) 0.6, Neut # (Auto) 2.8, Lymph # (Auto) 0.7, [place] # (Auto) 0.4, Eos # (Auto) 0.1, Baso # (Auto) 0.0, Sodium 136, Potassium 3.2 L, Chloride 100, Carbon Dioxide 34 H, Anion Gap 5.2, BUN 21 H, Creatinine 1.20, Estimated Creat Clear 54, Estimated GFR 57 L, Est GFR ( Amer) 69, Glucose 81 D, Calcium 7.1 L, Magnesium 2.1, Total Bilirubin 0.5, Direct Bilirubin 0.3, Conjugated Bilirubin 0.0, I ndirect Bilirubin 0.2, Unconjugated Bilirubin 0.3, AST 24 D, ALT 11 L D, Alkaline Phosphatase 79, Total Protein 4.1 L, Albumin 2.1 L D I & O for Last 24 hours: Intake & Output 07/13/24 07/14/24 07/15/24 07/16/24 23:59 23:59 23:59 23:59 Intake Total 840 / 1080 1020 / 1380 1350 / 1350 250 / 250 Output Total 3675 / 3675 3075 / 3250 3450 / 4150 700 / 700 Balance -2835 / -2595 -2055 / -1870 -2100 / -2800 -450 / -450 Weight 202 lb 200 lb 2.876 oz 201 lb 0.985 oz 195 lb 1.745 oz Constitutional Constitutional: no acute distress and average body habitus *Routine HEENT Exam Head: Present normocephalic and atraumatic ENT: Present mucous membranes moist *Routine Neck Exam Neck: Present supple, full ROM and normal carotid upstroke; Absent JVD, carotid bruit or lymphadenopathy *Routine Respiratory Exam Respiratory: Present CTA bilaterally, normal respiratory effort, able to speak in complete sentences and symmetric chest movement *Routine Cardiovascular Exam Cardiovascular: Present Normal S1, Normal S2 and irregularly irregular; Absent murmur or gallop *Routine Abdominal Exam Abdominal: Present soft and normoactive bowel sounds; Absent tenderness, distended or organomegaly *Routine Exam Scrotal: Present swelling *Routine Extremities Exam Extremities: Present edema, full ROM, pulses intact and normal capillary refill; Absent cyanosis or clubbing *Routine Skin Exam Skin: Present intact and warm; Absent erythema *Routine Neurological Exam Neurological: Present alert, oriented X3 and CN II-XII intact; Absent sensory deficit or motor deficit Routine Psychiatric Exam Psychiatric: Present normal affect Progress Note: A&P Assessment and plan (1) Acute on chronic heart failure with preserved ejection fraction (HFpEF): Status: Acute (2) Anasarca: Status: Acute (3) Volume overload: Status: Acute (4) Hypothyroidism (acquired): Status: Acute (5) Atrial fibrillation: Status: Acute (6) Hypertension: Status: Acute (7) Diabetes: Status: Acute (8) Pulmonary HTN: Status: Acute (9) Hyperlipidemia LDL goal <100: Status: Acute Assessment and Plan Assessment and Plan for All Diagnoses:: Plan: 1. The patient was admitted to the hospital for acute on chronic HFpEF. He is being diuresed with IV Bumex. He is a -2 L fluid balance overnight last night. The patient is down 7 pounds. Will stop IV Bumex and start oral Bumex 2 mg p.o. twice daily. 2. Continue spironolactone for diuresis. 3. Recent echocardiogram shows normal ejection fraction with severe RV dilatation and moderate reduction in RV function. He had severe TR and moderate to severe MR with an RVSP greater than 60 mmHg. He also had a small pericardial effusion. The patient also had pleural effusion and ascites present. As mentioned above we will continue with diuresis. 4. His blood pressure is on the low side but acceptable this morning. Continue to hold Entresto at this time. 5. His LDL goal is less than 100. LDL is 51. 6. Continue Jardiance and metoprolol for HFpEF. 7. The patient does have chronic atrial fibrillation. He is currently rate controlled. Continue metoprolol. 8. Continue Eliquis for long-term anticoagulation. 9. His creatinine is stable at 1.2 today. 10. No further recommendations at this time from a cardiac standpoint. The patient can be discharged home today from a cardiac standpoint with follow-up in cardiology clinic next week. 11. The patient can be discharged on the following cardiac medications: Eliquis 5 mg p.o. twice daily, Bumex 2 mg p.o. twice daily, Jardiance 10 mg daily, metoprolol 25 mg p.o. daily, spironolactone 50 mg p.o. daily. Try to reinitiate Entresto on an outpatient basis. Thank you for the opportunity to help participate in the care of this patient. All recommendations and orders are per Dr. Agudelo.
[2024-07-16 11:32] VITALS: BP 96/46; PULSE 82; RESP 18; TEMP 36.4; O2SAT 92
[2024-07-16 11:45] LABS: POC Glucose,Bedside 155 (70-110)
--- NOTE | 2024-07-16 13:49 | P.DS_ITS ---
General Admission date:: 07/13/24 HPI HPI HPI: Mr. Justice is an 88-year-old gentleman who presented the ER with complaint of shortness of breath and edema. Recently seen by cardiology and was concern for failure of outpatient treatment for CHF and volume overload. States his edema has been getting worse, has edema and his abdomen and scrotum. Worsening over the past 3 weeks. Failed Bumex as an outpatient. Weight is up almost 20 p ounds. Has been having increased dyspnea with exertion. Denies orthopnea and states that he is able to sleep on his side without significant pillows. On workup in the ER, found to have elevated BNP of 1200, kidney function at baseline with BUN 23, creatinine 1.4. Electrolytes normal potassium 3.8, sodium 135. White count normal at 5.4. Anemic with hemoglobin of 8.2. Medicine consulted for admission and further management of his volume overload and heart failure exacerbation. He denies any chest pain or pressure. He denies any fever, chills, nausea, vomiting or diarrhea. He does have orthopnea associated with his shortness of breath and edema. The patient reports that he has been taking his Bumex as prescribed except for yesterday when he went to religion. Hospital Course Hospital Course Hospital Course: 88-year-old male who presented to the ER because of worsening volume overload and exacerbation of heart failure with failure of outpatient therapy. Discussed case with ER physician, request admission for further management and diuresis. Medicine agreed to admit. Cardiology consulted to assist with care. Problems addressed as follows: #Acute on chronic heart failure with preserved ejection fraction #Right heart failure #Anasarca - ECHO 07/03/24: Severe RV dilation with moderate reduction in RV function. Severe biatrial dilation. Severe TR. Moderate to severe MR. RVSP > 60 mmHg. - Anasarca improved with IV Bumex diuresis. - Cardiology consulted, recommended discharging with meds as below. - Discharged with Bumex 2mg BID, Aldactone 50mg, Farxiga 10mg, metoprolol succinate 25mg. Plan to start Entresto outpatient. - Will follow-up with cardiology within 1 week. #Atrial fibrillation Currently rate controlled, continue metoprolol and Eliquis. #Hypothyroidism #Subtherapeutic dosing ? TSH elevated to 10.1, free T4 normal 1.05. ? Elevated TSH potentially reactive in the setting of acute illness. Will need follow-up in the outpatient setting and possible titration of levothyroxine. ? However, given severe RV failure increased levothyroxine from 25 mcg to 50 mcg. #Iron deficiency anemia ? Iron studies indicate iron deficiency. Iron 26, ferritin 9.91, iron saturation 8.2%. TIBC 314. ? Venofer given on 07/15/2024. ? Started on ferrous sulfate 325mg BID. CKD 3: Creatinine at baseline 1.4. Diabetes: A1c 7.1. Resume home glipizide and metformin, Farxiga. Exam Data for Last 24 hours Vital signs and Labs for Last 24 Hours: Temp Pulse Resp BP Pulse Ox O2 Del Method 97.6 F 82 18 96/46 L 92 L Room Air 07/16/24 11:32 07/16/24 11:32 07/16/24 11:32 07/16/24 11:32 07/16/24 11:32 07/16/24 11:32 Laboratory Results - last 24 hr 07/15/24 16:30: POC Glucose 156 H 07/16/24 05:58: POC Glucose 90 07/16/24 06:01: WBC 4.1 L, RBC 3.73 L, Hgb 7.8 L, Hct 25.8 L, MCV 69.2 L, MCH 20.9 L, MCHC 30.1 L, RDW 18.0 H, Plt Count 296, MPV 7.1 L, Neut % (Auto) 67.7, Lymph % (Auto) 17.9, [place] % (Auto) 10.5 H, Eos % (Auto) 3.3, Baso % (Auto) 0.6, Neut # (Auto) 2.8, Lymph # (Auto) 0.7, [place] # (Auto) 0.4, Eos # (Auto) 0.1, Baso # (Auto) 0.0, Sodium 136, Potassium 3.2 L, Chloride 100, Carbon Dioxide 34 H, Anion Gap 5.2, BUN 21 H, Creatinine 1.20, Estimated Creat Clear 54, Estimated GFR 57 L, Est GFR ( Amer) 69, Glucose 81 D, Calcium 7.1 L, Magnesium 2.1, Total Bilirubin 0.5, Direct Bilirubin 0.3, Conjugated Bilirubin 0.0, Indirect Bilirubin 0.2, Unconjugated Bilirubin 0.3, AST 24 D, ALT 11 L D, Alkaline Phosphatase 79, Total Protein 4.1 L, Albumin 2.1 L D 07/16/24 11:35: POC Glucose 155 H I & O for Last 24 hours: Intake & Output 07/13/24 07/14/24 07/15/24 07/16/24 23:59 23:59 23:59 23:59 Intake Total 840 / 1080 1020 / 1380 1350 / 1350 250 / 250 Output Total 3675 / 3675 3075 / 3250 3450 / 4150 700 / 700 Balance -2835 / -2595 -2055 / -1870 -2100 / -2800 -450 / -450 Weight 91.626 kg 90.8 kg 91.2 kg 88.5 kg Constitutional Constitutional: no acute distress and average body habitus *Routine HEENT Exam Head: Present normocephalic and atraumatic ENT: Present mucous membranes moist *Routine Neck Exam Neck: Present supple, full ROM and normal carotid upstroke; Absent JVD, carotid bruit or lymphadenopathy *Routine Respiratory Exam Respiratory: Present CTA bilaterally, normal respiratory effort, able to speak in complete sentences and symmetric chest movement *Routine Cardiovascular Exam Cardiovascular: Present Normal S1, Normal S2 and irregularly irregular; Absent murmur or gallop *Routine Abdominal Exam Abdominal: Present soft and normoactive bowel sounds; Absent tenderness, distended or organomegaly *Routine Exam Scrotal: Present swelling *Routine Extremities Exam Extremities: Present edema, full ROM, pulses intact and normal capillary refill; Absent cyanosis or clubbing *Routine Skin Exam Skin: Present intact and warm; Absent erythema *Routine Neurological Exam Neurological: Present alert, oriented X3 and CN II-XII intact; Absent sensory deficit or motor deficit Routine Psychiatric Exam Psychiatric: Present normal affect Results Data Completed and Pending Labs on day of discharge: Labs from last 24 hours 07/16/24 07/16/24 07/16/24 11:35 06:01 05:58 WBC 4.1 L RBC 3.73 L Hgb 7.8 L Hct 25.8 L MCV 69.2 L MCH 20.9 L MCHC 30.1 L RDW 18.0 H Plt Count 296 MPV 7.1 L Neut % (Auto) 67.7 Lymph % (Auto) 17.9 [place] % (Auto) 10.5 H Eos % (Auto) 3.3 Baso % (Auto) 0.6 Neut # (Auto) 2.8 Lymph # (Auto) 0.7 [place] # (Auto) 0.4 Eos # (Auto) 0.1 Baso # (Auto) 0.0 Sodium 136 Potassium 3.2 L Chloride 100 Carbon Dioxide 34 H Anion Gap 5.2 BUN 21 H Creatinine 1.20 Estimated Creat Clear 54 Estimated GFR 57 L Est GFR ( Amer) 69 Glucose 81 D POC Glucose 155 H 90 Calcium 7.1 L Magnesium 2.1 Total Bilirubin 0.5 Direct Bilirubin 0.3 Conjugated Bilirubin 0.0 Indirect Bilirubin 0.2 Unconjugated Bilirubin 0.3 AST 24 D ALT 11 L D Alkaline Phosphatase 79 Total Protein 4.1 L Albumin 2.1 L D 07/15/24 16:30 WBC RBC Hgb Hct MCV MCH MCHC RDW Plt Count MPV Neut % (Auto) Lymph % (Auto) [place] % (Auto) Eos % (Auto) Baso % (Auto) Neut # (Auto) Lymph # (Auto) [place] # (Auto) Eos # (Auto) Baso # (Auto) Sodium Potassium Chloride Carbon Dioxide Anion Gap BUN Creatinine Estimated Creat Clear Estimated GFR Est GFR ( Amer) Glucose POC Glucose 156 H Calcium Magnesium Total Bilirubin Direct Bilirubin Conjugated Bilirubin Indirect Bilirubin Unconjugated Bilirubin AST ALT Alkaline Phosphatase Total Protein Albumin DS: Diagnosis Discharge Diagnosis (1) Acute on chronic heart failure with preserved ejection fraction (HFpEF): Status: Acute Code(s): I50.33 - Acute on chronic diastolic (congestive) heart failure (2) Anasarca: Status: Acute Code(s): R60.1 - Generalized edema (3) Volume overload: Status: Acute Code(s): E87.70 - Fluid overload, unspecified (4) Hypothyroidism (acquired): Status: Acute Code(s): E03.9 - Hypothyroidism, unspecified (5) Atrial fibrillation: Status: Acute Code(s): I48.91 - Unspecified atrial fibrillation Qualifiers: Atrial fibrillation type: permanent Qualified Code(s): I48.21 - Permanent atrial fibrillation (6) Hypertension: Status: Acute Code(s): I10 - Essential (primary) hypertension Qualifiers: Hypertension type: primary hypertension Qualified Code(s): I10 - Essential (primary) hypertension (7) Diabetes: Status: Acute Code(s): E11.9 - Type 2 diabetes mellitus without complications Qualifiers: Diabetes mellitus complication detail: with other circulatory complications Diabetes mellitus complication status: with circulatory complication Diabetes mellitus assistant terminal manager insulin use: without shelter use Diabetes mellitus type: type 2 Qualified Code(s): E11.59 - Type 2 diabetes mellitus with other circulatory complications (8) Pulmonary HTN: Status: Acute Code(s): I27.20 - Pulmonary hypertension, unspecified (9) Hyperlipidemia LDL goal <100: Status: Acute Code(s): E78.5 - Hyperlipidemia, unspecified Meds Home Medications and Allergies Home Medications ?Medication ?Instructions ?Recorded ?Confirmed ?Type metoprolol succinate 25 mg 25 mg PO DAILY 90 days #90 tabs 12/04/23 07/13/24 Rx tablet,extended release 24 hr blood sugar diagnostic (Accu-Chek #100 ea 04/28/24 07/13/24 Rx SmartView Test Strips) apixaban 5 mg tablet (Eliquis) 5 mg PO BID 90 days #180 tabs 05/22/24 07/20/24 Rx bumetanide 2 mg tablet 2 mg PO BID #60 tabs 06/30/24 07/20/24 Rx metformin 500 mg tablet,extended 500 mg PO DAILY #90 tabs 07/06/24 07/13/24 Rx release 24 hr albuterol sulfate 90 mcg/actuation 2 puff inhalation Q4HP PRN 07/13/24 07/20/24 History aerosol inhaler shortness of breath or wheezing empagliflozin 10 mg tablet 10 mg PO DAILY 07/13/24 07/20/24 History glipizide 5 mg tablet 5 mg PO DAILY 07/13/24 07/20/24 History ferrous sulfate 325 mg (65 mg 325 mg PO BID 30 days #60 tabs 07/16/24 07/20/24 Rx iron) tablet levothyroxine 25 mcg tablet 50 mcg (2 x 25 mcg) PO DAILY 30 07/16/24 07/20/24 Rx days #30 tabs polyethylene glycol 3350 17 gram 17 g PO DAILY 30 days #30 ea 07/16/24 Rx oral powder packet (HealthyLax) spironolactone 25 mg tablet 50 mg (2 x 25 mg) PO DAILY 30 days 07/16/24 Rx (Aldactone) #30 tabs cefdinir 300 mg capsule 300 mg PO BID 10 days #20 caps 07/20/24 07/20/24 Rx New Prescriptions to Start Prescriptions: ferrous sulfate [place] levothyroxine [place] polyethylene glycol 3350 [HealthyLax] [place] spironolactone [Aldactone] [place] Allergies Allergy/AdvReac Type Severity Reaction Status Date / Time No Known Allergies Allergy Verified 07/20/24 14:24 Discharge Plan Disposition Patient Disposition: Home, Self-Care Discharge Order Discharge Orders: Discharge Order (Routine); Ordered 07/16/24 Ordered By: Chaparro Cordova Follow up Plan Follow up with: Olivia Beth APRN [Nurse Practitioner] - 07/28/24 1:15 pm Mohini Shrestha APRN [Primary Care Provider] - 08/03/24 11:15 am Prescriptions/Medication Reconciliation: New polyethylene glycol 3350 [HealthyLax] 17 gram Powder In Packet 17 g PO DAILY 30 Days Qty: 30 0RF ferrous sulfate 325 mg (65 mg iron) Tablet 325 mg PO BID 30 Days Qty: 60 0RF Continued bumetanide 2 mg tablet 2 mg PO BID Qty: 60 3RF metoprolol succinate 25 mg tablet extended release 24 hr 25 mg PO DAILY 90 Days Qty: 90 1RF (DME) Accu-Chek SmartView Test Strip Strip See Rx Instructions .Route Qty: 100 3RF Rx Instructions: As directed once daily Eliquis 5 mg tablet 5 mg PO BID 90 Days Qty: 180 0RF metformin 500 mg tablet extended release 24 hr 500 mg PO DAILY Qty: 90 3RF albuterol sulfate 90 mcg/actuation HFA aerosol inhaler 2 puff inhalation Q4HP PRN (Reason: shortness of breath or wheezing) glipizide 5 mg tablet 5 mg PO DAILY empagliflozin 10 mg tablet 10 mg PO DAILY Changed levothyroxine 25 mcg tablet 50 mcg PO DAILY 30 Days Qty: 30 0RF spironolactone [Aldactone] 25 mg Tablet 50 mg PO DAILY 30 Days Qty: 30 0RF Discontinued clindamycin HCl 300 mg capsule 300 mg PO TID Patient Comments: Take 1 capsule By Mouth three times a day No Action cefdinir 300 mg capsule 300 mg PO BID 10 Days Qty: 20 0RF Problem Reconciliation Problems Reviewed?: Yes Patient Discharge Instructions Patient Instructions: DI for Heart Failure Print Language: Lib[place] Providers Primary Care Provider: Mohini Shrestha Admit Provider: Ruddy Sun Attending Provider: Ruddy Sun
[2024-07-16 22:02] LABS: POC Glucose,Bedside 104 (70-110)
--- NOTE | 2024-07-17 13:35 | CARE MANAGER ---
Spoke with patient's . She states he has a cough, but is doing well. Denies questions or concerns. Has new medications and is aware of follow up appointment. RENAY Smallwood
[2024-07-17 14:54] LABS: POC Glucose,Bedside 135 (70-110)
[2024-07-17 14:58] LABS: POC Glucose,Bedside 164 (70-110)
== END 2024-07-16 14:27 | disposition home or self-care (01) | DRG 291 ==
LOC: ER 12:51 → 2ND 07-14 06:03
PROVIDERS: Nurse Practitioner Family; Student in an Organized Health Care Education/Training Program; Admitting Provider Internal Medicine Adolescent Medicine; Emergency Provider Emergency Medicine; PCP Nurse Practitioner Family; Visit Provider Internal Medicine Adolescent Medicine
DX: I13.0 Hypertensive heart and chronic kidney disease with heart failure and stage 1 through stage 4 chronic kidney disease, or unspecified chronic kidney disease (principal); I50.33 Acute on chronic diastolic (congestive) heart failure; I48.21 Permanent atrial fibrillation; E03.9 Hypothyroidism, unspecified; I07.1 Rheumatic tricuspid insufficiency; I34.0 Nonrheumatic mitral (valve) insufficiency; E11.59 Type 2 diabetes mellitus with other circulatory complications; R06.00 Dyspnea, unspecified; I27.20 Pulmonary hypertension, unspecified; E78.5 Hyperlipidemia, unspecified; Z86.16 Personal history of COVID-19; E11.22 Type 2 diabetes mellitus with diabetic chronic kidney disease; N18.30 Chronic kidney disease, stage 3 unspecified; Z79.01 Long term (current) use of anticoagulants; Z79.899 Other long term (current) drug therapy; D50.9 Iron deficiency anemia, unspecified; R60.0 Localized edema; Z79.84 Long term (current) use of oral hypoglycemic drugs; I50.810 Right heart failure, unspecified
CPT/HCPCS: 36415; 71045; 80048; 80053; 80061; 80076; 82728; 82962; 83036; 83540; 83550; 83735; 83880; 84439; 84443; 84484; 85025; 93005; 93971; 99285; J1756; J1939

== ENCOUNTER 2024-07-28 13:50 | Outpatient (CLI) | payer MEDICARE, SELFPAY ==
[2024-07-28 14:29] LABS: Basophils % 0.8 % (0.1-2.0); Eosinophils # 0.1 K/mm3 (0.0-0.4); Eosinophils % 1.8 % (0.1-12.0); Hematocrit 29.2 % (42.0-52.0); Hemoglobin 8.8 g/dL (14.1-18.0); Lymphocytes # 0.8 K/mm3 (0.7-4.5); Lymphocytes % 22.9 % (10-50); Mean Corpuscular HGB Conc 30.1 g/dL (31.8-35.4); Mean Corpuscular Hemoglobin 22.3 pg (27.0-31.2); Mean Corpuscular Volume 74.2 fl (80-94); Monocytes # 0.3 K/mm3 (0.1-1.0); Monocytes % 7.3 % (1.7-9.3); Neutrophils # 2.3 K/mm3 (1.8-7.8); Neutrophils % 67.1 % (37.0-80.0); Platelet Count 325 K/mm3 (142-424); Red Blood Count 3.93 M/mm3 (4.60-6.20); Red Cell Distribution Width 20.7 % (11.5-17.5); White Blood Count 3.4 K/mm3 (4.8-10.8)
[2024-07-28 14:54] LABS: Chloride 103 mmol/L (98-107); Potassium 4.6 mmoL/L (3.5-5.1); Sodium 137 mmol/L (136-145)
[2024-07-28 14:57] LABS: Anion Gap 8.6 mEq/L (5-15); Blood Urea Nitrogen 19 mg/dl (9-20); Calcium 7.9 mg/dl (8.4-10.2); Carbon Dioxide 30 mmol/L (22.0-30.0); Estimated Glomerular Filt Rate 44 ml/min (>60); GFR (African American) 54 ML/MIN (>60); Glucose 100 mg/dl (74-100)
== END 2024-07-28 23:59 | disposition home or self-care (01) ==
LOC: LAB 13:51
PROVIDERS: PCP Nurse Practitioner Family; Visit Provider Nurse Practitioner
DX: I10 Essential (primary) hypertension (principal)
CPT/HCPCS: 36415; 80048; 85025

== ENCOUNTER 2024-11-06 14:30 | Outpatient (CLI) | payer MEDICARE, SELFPAY ==
[2024-11-06 13:30] LABS: Basophils % 0.7 % (0.1-2.0); Eosinophils # 0.2 K/mm3 (0.0-0.4); Eosinophils % 3.5 % (0.1-12.0); Hematocrit 42.8 % (42.0-52.0); Hemoglobin 13.6 g/dL (14.1-18.0); Lymphocytes # 0.8 K/mm3 (0.7-4.5); Mean Corpuscular HGB Conc 31.8 g/dL (31.8-35.4); Mean Corpuscular Hemoglobin 27.4 pg (27.0-31.2); Mean Corpuscular Volume 86.1 fl (80-94); Mean Platelet Volume 10.7 fl (7.4-10.4); Monocytes # 0.4 K/mm3 (0.1-1.0); Neutrophils # 2.8 K/mm3 (1.8-7.8); Neutrophils % 65.9 % (37.0-80.0); Platelet Count 172 K/mm3 (142-424); Red Blood Count 4.97 M/mm3 (4.60-6.20); White Blood Count 4.3 K/mm3 (4.8-10.8)
[2024-11-06 13:59] LABS: Alanine Aminotransferase 17 U/L (12-78); Albumin Level 4.5 g/dl (3.5-5.0); Aspartate Amino Transferase 29 U/L (17-59); Bilirubin,Total 0.7 mg/dl (0.2-1.3); Blood Urea Nitrogen 30 mg/dl (9-20); Calcium 9.4 mg/dl (8.4-10.2); Carbon Dioxide 30 mmol/L (22.0-30.0); Chloride 100 mmol/L (98-107); Estimated Glomerular Filt Rate 52 ml/min (>60); GFR (African American) 63 ML/MIN (>60); Globulin 2.7 g/dL (1.3-3.2); Glucose 153 mg/dl (74-100); Sodium 138 mmol/L (136-145); Total Protein,Serum 7.2 g/dl (6.3-8.2)
[2024-11-06 14:00] LABS: Albumin/Globulin Ratio 1.7 (1.1-1.8); Alkaline Phosphatase 95 U/L (38-126); Chol/HDL Ratio 3.3 (1-3.5); Cholesterol 185 mg/dl (140-200); Creatinine,Urine Random 12 mg/dL (Not Estab.); HDL Cholesterol 56 mg/dl (40-60); Triglycerides 191 mg/dl (30-150); VLDL Cholesterol 38 mg/dL (0-40)
[2024-11-06 14:02] LABS: Microalbumin/Creatinine Ratio 55.8
[2024-11-06 14:09] LABS: Hemoglobin A1C 6.9 % (4.0-6.0)
[2024-11-06 14:10] LABS: Direct LDL Cholesterol 68.74 mg/dL (100-129)
[2024-11-06 14:14] LABS: Free T4 (Free Thyroxine) 1.17 ng/dl (0.78-2.19)
[2024-11-06 14:29] LABS: Thyroid Stimulating Hormone 4.87 uIU/mL (0.465-4.68)
[2024-11-06 14:47] LABS: Vitamin B12 681 pg/mL (239-931)
[2024-11-06 15:33] LABS: Ferritin 40.5 ng/ml (17.9-464)
== END 2024-11-06 23:59 | disposition home or self-care (01) ==
LOC: LAB.DROPOF 11-09 14:33
PROVIDERS: PCP Nurse Practitioner Family; Visit Provider Nurse Practitioner Family
DX: E03.9 Hypothyroidism, unspecified (principal); D50.9 Iron deficiency anemia, unspecified; I10 Essential (primary) hypertension; I48.91 Unspecified atrial fibrillation; I07.1 Rheumatic tricuspid insufficiency; I34.0 Nonrheumatic mitral (valve) insufficiency; E11.59 Type 2 diabetes mellitus with other circulatory complications; Z79.84 Long term (current) use of oral hypoglycemic drugs
CPT/HCPCS: 80053; 80061; 82043; 82570; 82607; 82728; 83036; 83735; 84439; 84443; 85025

== ENCOUNTER 2025-09-01 15:29 | Outpatient (CLI) | payer MEDICARE, SELFPAY ==
--- OUTSIDE RECORDS SUMMARY | 2025-09-01 15:31 | XMS_ITS | Clinical Summary ---
Author Organization [facility] yste Address [address] [place] [id number] Care Team Providers Care Aerial Planting And Cultivation Manager Name Role Phone Unavailable Primary Care Provider Unavailabl e Medications Accu-Chek SmartView test stripIndication s:Type 2 diabetes mellitus with hyperglycemia, without long-term current use of insulin USE ONCE A DAY DIRECTED 100 each 3 05/04/2022 Active Social History Tobacco Use Types Packs/Day Years Used Date Smoking Tobacco: Never Assessed Abuse Screen Answer Date Recorded Unsafe at Home or Work/School Not on file Feels Threatened by Someone? Not on file Does Anyone Keep You from Co ntacting Others or Doint Things Outside the Home? Not on file 06/14/2023 Physical Sign of Abuse Present Not on file 1 Housing Stability Answer Date Recorded Current Living Arrangements Not on file 06/02 Potentially Unsafe Housing Conditions Not on geo e 06/14/2023 Family and Community Support Answer Wily e Recorded Help with Day-to-Day Activities Not on file 06/14/2023 Lonely or Isolated Not on file 06/14/2023 Employment Answer Date Recorded Do you want help finding or keeping work or a flavio b? Not on file 06/14/2023 Disabilities Answer Date Recorded Concentrating, Remembering, or Making Decisions Difficulty Not on file 06/14/2023 Doing Errands Independently Difficulty Not on fi le 06/14/2023 Education Answer Date Recorded Help with school or training? Not on file Preferred Language Not on file 06/14/2023 Sex and Gender Information Value Date Recorded Sex Assigned at Not on file Legal Sex Male 3:54 PM EDT Gender Identity Not on file Sexual Orientation Not on file Plan of Treatment Health Maintenance Due Date Last Done Comments ANNUAL PHYSICAL 1935 TDAP/TD VACCINES (1 - Tdap) 11/21/1955 Pneumococcal Vaccine 50+ (1 of 1 - PCV) 1986 ZOSTER VACCINE (1 of 2) 1986 RSV Vaccine - Adults (1 - 1-dose 75+ series) 2 INFLUENZA VACCINE 04/02/2025 COVID-19 Vaccine ( - 2023- season) 2025
--- OUTSIDE RECORDS SUMMARY | 2025-09-01 15:31 | XMS_ITS | Clinical Summary ---
Author Organization [facility] Address [address] [place] [address] Care Team Providers Care Loader Operator Supervisor Name Role Phone Tay Pablo MD Primary Care Provider [phone] Social History Tobacco Use Types Packs/Day Years Used Date Smoking Tobacco: Never Assessed Sex and Gender Information Value Date Recorded Sex Assigned at Not on file Legal Sex Male 6:14 PM EDT Gender Identity Not on file Sexual Orientation Not on file Plan of Treatment Health Maintenance Due Date Last Done Comments [facility]-Depression Screening 1936 [facility]-/Child/Adol SDOH Screenings 1936 [facility]- SDOH Screenings 1954 [facility]-Adult SDOH Screenings 1954 [facility]-DTaP,Tdap,and Td Vaccines (1 - Tdap) 11/21/1955 [facility]-Pneumococcal Vaccine: 50+ Years (1 of 1 - PCV) 1986 [facility]-Zoster Vaccines (1 of 2) 1986 [facility]-RSV Vaccine: 60+ Years or (1 - 1-dose 75+ series) 11/21/2011 [id number] Vaccine (3 - season) 2025 10/26/2020, 09/28/2020 [facility]-Influenza Vaccine (#1) 2025 HPV Vaccines (No Doses Required) Completed [facility]-HIB Vaccines Aged Out No longer e ligible based on patient's age to complete this topic [facility]-Hepatitis A Vaccines Aged Out No longer eligible based on patient's age to complete this topic [facility]-IPV Vaccines Aged Out No longer e ligible based on patient's age to complete this topic [facility]-Rotavirus Vaccines Aged Out No lo nger eligible based on patient's age to complete this topic Insurance [employer] Care Teams Loader Operator Supervisor Relationship Specialty Start Date End Date Tay Pablo MD [address] [place] [address] PCP - General 01/13/21
[2025-09-01 15:33] LABS: Hematocrit 36.2 % (42.0-52.0); Hemoglobin 11.1 g/dL (14.1-18.0); Immature Granulocytes % 1.5 %; Mean Corpuscular HGB Conc 30.7 g/dL (31.8-35.4); Mean Corpuscular Hemoglobin 28.2 pg (27.0-31.2); Mean Corpuscular Volume 92.1 fl (80-94); Nucleated Red Blood Cells % 0 %; Platelet Count 221 K/mm3 (142-424); Red Blood Count 3.93 M/mm3 (4.60-6.20); Red Cell Distribution Width-SD 46.0 fL; White Blood Count 2.8 K/mm3 (4.8-10.8)
[2025-09-01 16:24] LABS: Alanine Aminotransferase 13 U/L (12-78); Albumin Level 2.7 g/dl (3.5-5.0); Albumin/Globulin Ratio 1.1 (1.1-1.8); Alkaline Phosphatase 93 U/L (38-126); Anion Gap 8.4 mEq/L (5-15); Aspartate Amino Transferase 30 U/L (17-59); Bilirubin,Total 0.5 mg/dl (0.2-1.3); Blood Urea Nitrogen 18 mg/dl (9-20); Calcium 7.5 mg/dl (8.4-10.2); Carbon Dioxide 34 mmol/L (22.0-30.0); Chloride 98 mmol/L (98-107); Cholesterol 141 mg/dl (140-200); Creatinine,Serum 1.10 mg/dl (0.66-1.25); Estimated Glomerular Filt Rate 63 ml/min (>60); GFR (African American) 76 ML/MIN (>60); Globulin 2.5 g/dL (1.3-3.2); Glucose 93 mg/dl (74-100); HDL Cholesterol 42 mg/dl (40-60); Potassium 4.4 mmoL/L (3.5-5.1); Sodium 136 mmol/L (136-145); Total Protein,Serum 5.2 g/dl (6.3-8.2); Triglycerides 153 mg/dl (30-150)
[2025-09-01 16:55] LABS: Thyroid Stimulating Hormone 3.16 uIU/mL (0.465-4.68)
[2025-09-01 17:39] LABS: Hemoglobin A1C 5.6 % (4.0-6.0)
[2025-09-01 18:30] LABS: Ferritin 34.6 ng/ml (17.9-464)
== END 2025-09-01 23:59 | disposition home or self-care (01) ==
LOC: LAB.DROPOF 15:29
PROVIDERS: PCP Nurse Practitioner Family; Visit Provider Nurse Practitioner Family
DX: E11.59 Type 2 diabetes mellitus with other circulatory complications (principal); I10 Essential (primary) hypertension; E03.9 Hypothyroidism, unspecified; D64.9 Anemia, unspecified; Z12.5 Encounter for screening for malignant neoplasm of prostate
CPT/HCPCS: 80053; 80061; 82728; 83036; 84443; 85025; G0103